=== PATIENT | female | born 1990 | race Caucasian/White ===

== ENCOUNTER 2018-01-05 17:29 | Emergency (ER) | payer OTHER ==
[2018-01-05 17:55] VITALS: PULSE 57; RESP 18
[2018-01-05] MEDS ORDERED: Sodium Chloride 0.9% 1,000 ML IV STA ×2 (18:02→21:00)
--- NOTE | 2018-01-05 18:09 | C.PDOC ---
History Of Present Illness 27-year-old female presents to the ED for evaluation of vomiting and abdominal pain which began this morning. Patient reports having around 20 episodes of non- bilious/non-bloody vomiting and states she has been unable to tolerate PO intake. Patient states she ate chicken at a local restaurant yesterday. Patient took Zofran earlier today without relief. She denies fever, chills, diarrhea. Time Seen by Provider: 01/05/18 17:41 Chief Complaint (Nursing): GI Problem History Per: Patient, Other (roommates (bedside)) Onset/Duration Of Symptoms: Hrs Current Symptoms Are (Timing): Still Present Quality Of Discomfort: "Pain" Associated Symptoms: Nausea, Vomiting. denies: Fever, Chills, Diarrhea, Constipation Additional History Per: Patient Abnormal Vaginal Bleeding: No Past Medical History Reviewed: Historical Data, Nursing Documentation, Vital Signs Vital Signs: Last Vital Signs Temp 98.4 F 01/05/18 21:51 Pulse 57 L 01/05/18 21:51 Resp 18 01/05/18 21:51 BP 120/74 01/05/18 21:51 Pulse Ox 100 01/05/18 21:51 - Medical History PMH: No Chronic Diseases Surgical History: No Surg Hx Family History: States: Unknown Family Hx - Social History Hx Tobacco Use: No Hx Alcohol Use: No Hx Substance Use: No - Immunization History Hx Tetanus Toxoid Vaccination: No Hx Influenza Vaccination: No Hx Pneumococcal Vaccination: No Review Of Systems Constitutional: Negative for: Fever, Chills Gastrointestinal: Positive for: Vomiting, Abdominal Pain Physical Exam - Physical Exam Additional Physical Exam Comments: Constitutional: Appears weak, actively vomiting Head: Normocephalic. Atraumatic. Eyes: PERRL. ENT: Moist mucous membranes. Neck: Supple. Cardiovascular: Regular rate. Radial pulse 2+ bilaterally. Chest: No tenderness. Respiratory: Clear to auscultation bilaterally. GI: Soft. Epigastric tenderness. No rebound or guarding. Back: No CVA tenderness. Musculoskeletal: No tenderness or swelling of extremities. Skin: No rash. Neurologic: Alert, no focal deficit. 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 Zofran IVP and IV Fluids administered. PO challenged. Patient offered admission for IVF but she preferred to go home. Continue PO fluids, instructed to return for intractible vomiting or lethargy. Disposition - Disposition Disposition: HOME/ ROUTINE Disposition Time: 22:14 Condition: STABLE Prescriptions: Ondansetron ODT [Zofran ODT] 1 tab PO Q8H #12 odt Instructions: Viral Gastroenteritis Forms: [employer] ([place]) - Clinical Impression Clinical Impression: Vomiting and diarrhea - Scribe Statement The provider has reviewed the documentation as recorded by the Scribe (Lisa Rojas) Provider Attestation: All medical record entries made by the Scribe were at my direction and personally dictated by me. I have reviewed the chart and agree that the record accurately reflects my personal performance of the history, physical exam, medical decision making, and the department course for this patient. I have also personally directed, reviewed, and agree with the discharge instructions and disposition.
[2018-01-05] MEDS ORDERED: Sodium Chloride 0.9% 1,000 ML ONE (18:10)
[2018-01-05 18:21] LABS: BASO % 0.5 % (0.0-2.0); EOS % 0.2 % (0.0-4.0); HEMOGLOBIN 13.4 g/dL (11.0-16.0); LYMPH # 1.1 K/uL (1.0-4.3); LYMPH % 14.9 % (20.0-40.0); MEAN CELL VOLUME 78.6 fL (81.0-99.0); MEAN CORPUSCULAR HEMOGLOBIN 25.5 pg (27.0-31.0); MEAN CORPUSCULAR HGB CONC 32.5 g/dL (33.0-37.0); MEAN PLATELET VOLUME 9.9 fL (7.2-11.7); MONO # 0.3 K/uL (0.0-0.8); MONO % 3.4 % (0.0-10.0); NEUT # 6.2 K/uL (1.8-7.0); NRBC % 0.1 % (0.0-2.0); RBC 5.25 Mil/uL (3.80-5.20); RED CELL DISTRIBUTION WIDTH 12.8 % (11.5-14.5); WHITE BLOOD COUNT 7.7 K/uL (4.8-10.8)
[2018-01-05 18:32] LABS: ALB/GLOB RATIO 1.3 (1.0-2.1); ALBUMIN 4.5 g/dL (3.5-5.0); ALT/SGPT 34 U/L (9-52); AST/SGOT 35 U/L (14-36); BLOOD UREA NITROGEN 17 mg/dL (7-17); CALCIUM 9.7 mg/dl (8.6-10.4); GFR AFRICAN-AMERICAN > 60; GFR NON-AFRICAN AMERICAN > 60; LIPASE 55 U/L (23-300)
[2018-01-05 19:31] LABS: HCG,QUALITATIVE URINE NEGATIVE (NEGATIVE)
[2018-01-05 19:32] LABS: SQUAMOUS EPITHIAL 2 /hpf (0-5); URINE BACTERIA RARE (<OCC); URINE BILIRUBIN NEGATIVE (NEGATIVE); URINE BLOOD NEGATIVE (NEGATIVE); URINE CLARITY Hazy (Clear); URINE COLOR Yellow (YELLOW); URINE GLUCOSE (UA) NORMAL (Normal); URINE LEUKOCYTE ESTERASE TRACE Leu/uL (Negative); URINE PROTEIN 2+ mg/dL (NEGATIVE); URINE UROBILINOGEN NORMAL mg/dL (0.2-1.0)
[2018-01-05 21:52] VITALS: BP 120/74; TEMP 98.4
[2018-01-05 22:15] VITALS: O2SAT 97
== END 2018-01-05 22:24 | disposition home or self-care (01) ==
LOC: C.ER 17:29
DX: R11.10 Vomiting, unspecified (principal); R19.7 Diarrhea, unspecified
CPT/HCPCS: 80053; 81001; 83690; 84703; 85025; 87086; 96361; 96374; 96375; 99285; J2405; J2765; J7030

== ENCOUNTER 2018-01-06 18:26 | Observation (INO) | payer OTHER ==
[2018-01-06] MEDS ORDERED: Sodium Chloride 0.9% 1,000 ML IV STA ×2 (18:55→21:53)
[2018-01-06] MEDS ORDERED: Sodium Chloride 0.9% 1,000 ML ONE ×2 (19:05→22:02)
[2018-01-06 19:10] LABS: BASO % 0.4 % (0.0-2.0); EOS % 0.1 % (0.0-4.0); HEMOGLOBIN 13.3 g/dL (11.0-16.0); LYMPH # 2.2 K/uL (1.0-4.3); LYMPH % 20.8 % (20.0-40.0); MEAN CORPUSCULAR HEMOGLOBIN 25.7 pg (27.0-31.0); MEAN PLATELET VOLUME 9.9 fL (7.2-11.7); MONO # 0.7 K/uL (0.0-0.8); MONO % 6.3 % (0.0-10.0); NEUT # 7.6 K/uL (1.8-7.0); NEUT % 72.4 % (50.0-75.0); NRBC % 0.1 % (0.0-2.0); RBC 5.17 Mil/uL (3.80-5.20); RED CELL DISTRIBUTION WIDTH 12.6 % (11.5-14.5); WHITE BLOOD COUNT 10.5 K/uL (4.8-10.8)
[2018-01-06 19:34] LABS: ALB/GLOB RATIO 1.4 (1.0-2.1); ALBUMIN 4.3 g/dL (3.5-5.0); ALT/SGPT 63 U/L (9-52); AST/SGOT 61 U/L (14-36); BLOOD UREA NITROGEN 15 mg/dL (7-17); CALCIUM 9.2 mg/dl (8.6-10.4); GFR AFRICAN-AMERICAN > 60; GFR NON-AFRICAN AMERICAN > 60; LIPASE 110 U/L (23-300)
[2018-01-06 19:37] LABS: SQUAMOUS EPITHIAL 1 /hpf (0-5); URINE AMORPHOUS SEDIMENT RARE /ul (<OCC); URINE BACTERIA RARE (<OCC); URINE BILIRUBIN NEGATIVE (NEGATIVE); URINE BLOOD NEGATIVE (NEGATIVE); URINE CLARITY Hazy (Clear); URINE COLOR Yellow (YELLOW); URINE GLUCOSE (UA) NORMAL (Normal); URINE LEUKOCYTE ESTERASE NEG Leu/uL (Negative); URINE PROTEIN 1+ mg/dL (NEGATIVE); URINE UROBILINOGEN NORMAL mg/dL (0.2-1.0)
[2018-01-06 19:38] LABS: HCG,QUALITATIVE URINE NEGATIVE (NEGATIVE)
--- NOTE | 2018-01-06 20:07 | C.PDOC ---
History Of Present Illness <Geoffrey Oconnor - Last Filed: 01/07/18 01:02> <Manjinder Ramirez - Last Filed: 01/07/18 03:11> 27-year-old female presents to the ED for evaluation of vomiting and abdominal pain which began yesterday. Patient reports having around 20 episodes of non- bilious/non-bloody vomiting and states she has been unable to tolerate PO intake. Patient states she ate chicken at a local restaurant 2 days ago. Patient was seen and treated here yesterday for same complaint, she was discharged on zofran, however, continues to have intractable vomiting despite zofran. She denies fever, chills, diarrhea. (Geoffrey Oconnor) History Per: Patient History/Exam Limitations: no limitations Onset/Duration Of Symptoms: Days Current Symptoms Are (Timing): Still Present Quality Of Discomfort: Unable To Describe Associated Symptoms: Nausea, Vomiting. denies: Fever, Diarrhea Exacerbating Factors: None Alleviating Factors: None Recent travel outside of the [place]: No Abnormal Vaginal Bleeding: No <Geoffrey Oconnor - Last Filed: 01/07/18 01:02> <Manjinder Ramirez - Last Filed: 01/07/18 03:11> Time Seen by Provider: 01/06/18 18:39 Chief Complaint (Nursing): GI Problem Past Medical History Reviewed: Historical Data, Nursing Documentation, Vital Signs Family History: States: Unknown Family Hx - Social History Hx Tobacco Use: No Hx Alcohol Use: No Hx Substance Use: No - Immunization History Hx Tetanus Toxoid Vaccination: No Hx Influenza Vaccination: No Hx Pneumococcal Vaccination: No <Geoffrey Oconnor - Last Filed: 01/07/18 01:02> Vital Signs: Last Vital Signs Temp 99.5 F 01/07/18 02:46 Pulse 55 L 01/07/18 02:46 Resp 18 01/07/18 02:46 BP 133/79 01/07/18 02:46 Pulse Ox 100 01/07/18 02:46 Review Of Systems Except As Marked, All Systems Reviewed And Found Negative. Constitutional: Negative for: Fever, Chills Gastrointestinal: Positive for: Nausea, Vomiting, Abdominal Pain. Negative for : Diarrhea <Geoffrey Oconnor - Last Filed: 01/07/18 01:02> Physical Exam <Geoffrey Oconnor - Last Filed: 01/07/18 01:02> <Manjinder Ramirez - Last Filed: 01/07/18 03:11> - Physical Exam Additional Physical Exam Comments: Constitutional: Appears weak, actively vomiting Head: Normocephalic. Atraumatic. Eyes: PERRL. ENT: Moist mucous membranes. Neck: Supple. Cardiovascular: Regular rate. Radial pulse 2+ bilaterally. Chest: No tenderness. Respiratory: Clear to auscultation bilaterally. GI: Soft. Epigastric tenderness. No rebound or guarding. Back: No CVA tenderness. Musculoskeletal: No tenderness or swelling of extremities. Skin: No rash. Neurologic: Alert, no focal deficit. (Geoffrey Oconnor) ED Course And Treatment - Laboratory Results Result Diagrams: 01/06/18 19:01 01/06/18 19:01 O2 Sat by Pulse Oximetry: 100 (Room air) Pulse Ox Interpretation: Normal <Geoffrey Oconnor - Last Filed: 01/07/18 01:02> - Laboratory Results Result Diagrams: 01/06/18 19:01 01/06/18 19:01 <Manjinder Ramirez - Last Filed: 01/07/18 03:11> Medical Decision Making <Geoffrey Oconnor - Last Filed: 01/07/18 01:02> <Manjinder Ramirez - Last Filed: 01/07/18 03:11> Medical Decision Making: Plan: * Blood work * CT abd/pel * Urinalysis * Protonix * IV fluids * Zofran CT shows gall bladder wall thickening, US ordered for further evaluation. Pending US. Signed out to ED night team. (Geoffrey Oconnor) Disposition - Disposition Disposition Time: 01:02 <Geoffrey Oconnor - Last Filed: 01/07/18 01:02> Discussed With : Grupo Smith Doctor Will See Patient In The: Hospital Counseled Patient/Family Regarding: Diagnosis - Disposition Disposition Time: 03:10 - POA Present On Arrival: None <Manjinder Ramirez Last Filed: 01/07/18 03:11> - Disposition Disposition: HOSPITALIZED Condition: STABLE Forms: [employer] (Norwegian) - Clinical Impression Clinical Impression: Intractable vomiting, Cholecystitis, unspecified - Scribe Statement The provider has reviewed the documentation as recorded by the Scribe <Geoffrey Oconnor - Last Filed: 01/07/18 01:02> <Manjinder Ramirez - Last Filed: 01/07/18 03:11> - Scribe Statement Brian Negron All medical record entries made by the Scribe were at my direction and personally dictated by me. I have reviewed the chart and agree that the record accurately reflects my personal performance of the history, physical exam, medical decision making, and the department course for this patient. I have also personally directed, reviewed, and agree with the discharge instructions and disposition. (Geoffrey Oconnor)
--- NOTE | 2018-01-06 21:15 | CT ---
EXAM: CT Abdomen and Pelvis With Intravenous Contrast CLINICAL HISTORY: 27 years old, female; Pain; Abdominal pain; Epigastric; Additional info: Abdominal pain, vomiting TECHNIQUE: Axial computed tomography images of the abdomen and pelvis with intravenous contrast. All CT scans at this facility use one or more dose reduction techniques, viz.: automated exposure control; ma/kV adjustment per patient size (including targeted exams where dose is matched to indication; i.e. head); or iterative reconstruction technique. Coronal and sagittal reformatted images were created and reviewed. CONTRAST: 100 mL of [id number] administered intravenously. COMPARISON: No relevant prior studies available. FINDINGS: Limitations: Motion artifact - mild. Lung bases: No acute findings. ABDOMEN: Liver: Fatty infiltration. Minimal periportal edema. Gallbladder and bile ducts: Gallbladder wall thickening. No calcified gallstones. No significant extrahepatic ductal dilation. Pancreas: No ductal dilation. No mass. Spleen: No splenomegaly. Adrenals: No mass. Kidneys and ureters: No mass. No hydronephrosis. Stomach and bowel: Segmental areas of probable underdistention of colon. No definite mural thickening. No obstruction. PELVIS: Appendix: Normal caliber. No inflammation. Bladder: Unremarkable. Reproductive: Unremarkable as visualized. ABDOMEN and PELVIS: Intraperitoneal space: Small free fluid within pelvis. No free air. Bones/joints: No acute fracture. Soft tissues: Tiny umbilical hernia containing fat. Vasculature: Unremarkable. No aneurysm. Lymph nodes: No pathologically enlarged lymph nodes. IMPRESSION: 1. Gallbladder wall thickening. Recommend ultrasound. 2. Incidental/non-acute findings are described above.
--- NOTE | 2018-01-07 02:33 | US ---
EXAM: US Abdomen Complete CLINICAL HISTORY: 27 years old, female; Pain; Abdominal pain; Patient HX: Vomitting; Additional info: Pls check pv flow, not a continuous flow TECHNIQUE: Real-time ultrasound of the abdomen (complete) with image documentation. COMPARISON: CT - ABD PELVIS IV CONTRAST ONLY 2018-01-06 20:40 FINDINGS: Liver: Normal echogenicity. No mass. No intrahepatic bile duct dilatation. Normal portal and hepatic flow. Gallbladder: No gallstones. Up to 0.61 cm wall thickness. Small pericholecystic fluid. Positive Patel's sign. Common bile duct: No dilatation. No stones. Pancreas: Unremarkable as visualized. Kidneys: Normal echogenicity. No hydronephrosis. Spleen: No splenomegaly. Aorta: Unremarkable. No aneurysm. Inferior vena cava: Unremarkable. Free fluid: No significant free fluid. IMPRESSION: 1. Gallbladder wall thickening with pericholecystic fluid and positive Patel's sign. Clinical correlation is needed.
--- NOTE | 2018-01-07 03:48 | CP.PCM.HP ---
<Bertha Mccarthy - Last Filed: 01/07/18 03:56> History of Present Illness - History of Present Illness History of Present Illness: CC: midepigastric pain and vomiting x multiple episodes 27F with no past medical history presents with nausea, vomiting. Patient was seen in ED yesterday 01/05 for same symptoms. Patient states she ate chicken at a restaurant the day before. Patient denies fever, chills, numbness, weakness, tingling, acid reflux. Patient admits to mid-epigastric pain, nausea, vomiting. Patient takes control at home and has been taking the same one for the past three months. PMH: none Past surgical: none Social: smoker 2-3 cig per day for the past year. no illicit drugs. social etoh once a month allergies: NKDA Present on Admission - Present on Admission Any Indicators Present on Admission: No History of DVT/PE: No History of Uncontrolled Diabetes: No Urinary Catheter: No Decubitus Ulcer Present: No Review of Systems - Review of Systems All systems: reviewed and no additional remarkable complaints except Past Patient History - Past Medical History & Family History Past Medical History?: No - Past Social History Smoking Status: Light Smoker < 10 Cigarettes Daily Chewing Tobacco Use: No Cigar Use: No Alcohol: Social Drugs: Denies - ENDOCRINE/METABOLIC Other/Comment: PRE DIABETIC - PSYCHIATRIC Hx Substance Use: No - SURGICAL HISTORY Hx Surgeries: No Meds Allergies/Adverse Reactions: Allergies Allergy/AdvReac Type Severity Reaction Status Date / Time No Known Allergies Allergy Unverified 01/05/18 17:42 Physical Exam - Constitutional Appears: Non-toxic, No Acute Distress - Head Exam Head Exam: ATRAUMATIC, NORMAL INSPECTION, NORMOCEPHALIC - Eye Exam Eye Exam: EOMI, Normal appearance - ENT Exam ENT Exam: Mucous Membranes Dry - Neck Exam Neck exam: Positive for: Full Rom. Negative for: Tenderness, Thyromegaly - Respiratory Exam Respiratory Exam: NORMAL BREATHING PATTERN. absent: Accessory Muscle Use - Cardiovascular Exam Cardiovascular Exam: REGULAR RHYTHM, +S1, +S2 - GI/Abdominal Exam GI & Abdominal Exam: Soft, Tenderness (midepigastric pain to deep palpation, ruq pain to deep palpation. positive langston's sign). absent: Distended, Firm, Pulsatile Mass, Rebound, Rigid - Extremities Exam Extremities exam: Positive for: full ROM. Negative for: pedal edema - Neurological Exam Neurological exam: Alert, CN II-XII Intact, Reflexes Normal - Psychiatric Exam Psychiatric exam: Flat Affect, Normal Mood - Skin Skin Exam: Dry, Intact, Normal Color, Warm Results - Vital Signs Recent Vital Signs: Last Vital Signs Temp 99.5 F 01/07/18 02:46 Pulse 55 L 01/07/18 02:46 Resp 18 01/07/18 02:46 BP 133/79 01/07/18 02:46 Pulse Ox 100 01/07/18 02:46 - Labs Result Diagrams: 01/06/18 19:01 01/06/18 19:01 Labs: Laboratory Results - last 24 hr 01/06/18 01/06/18 01/06/18 19:01 19:01 19:27 WBC 10.5 RBC 5.17 Hgb 13.3 Hct 40.3 MCV 78.0 L MCH 25.7 L MCHC 33.0 RDW 12.6 Plt Count 222 MPV 9.9 Neut % (Auto) 72.4 Lymph % (Auto) 20.8 [place] % (Auto) 6.3 Eos % (Auto) 0.1 Baso % (Auto) 0.4 Neut # (Auto) 7.6 H Lymph # (Auto) 2.2 [place] # (Auto) 0.7 Eos # (Auto) 0.0 Baso # (Auto) 0.0 Sodium 144 Potassium 3.5 L Chloride 108 H Carbon Dioxide 22 Anion Gap 18 BUN 15 Creatinine 0.8 Est GFR ( Amer) > 60 Est GFR (Non-Af Amer) > 60 Random Glucose 98 Calcium 9.2 Total Bilirubin 0.6 AST 61 H D ALT 63 H D Alkaline Phosphatase 50 Total Protein 7.3 Albumin 4.3 Globulin 3.0 Albumin/Globulin Ratio 1.4 Lipase 110 Urine Color Yellow Urine Clarity Hazy Urine pH 7.0 Ur Specific [place] 1.027 Urine Protein 1+ H Urine Glucose (UA) Normal Urine Ketones 2+ H Urine Blood Negative Urine Nitrate Negative Urine Bilirubin Negative Urine Urobilinogen Normal Ur Leukocyte Esterase Neg Urine WBC (Auto) 3 Urine RBC (Auto) 3 Ur Squamous Epith Cells 1 Amorphous Sediment Rare H Urine Bacteria Rare Urine HCG, Qual Negative Assessment & Plan - Assessment and Plan (Free Text) Assessment: transaminitis, acalculous cholecystitis, intractable vomiting, afebrile 01/06 CT abdomen/pelvis IV contrast: Gallbladder wall thickening 01/07 Abdominal US: gallbladder wall thickening with pericholecystic fluid and positive langston's sign. monitor electrolytes Reglan 10 mg IVP Q6H PRN nausea Zofran 4mg IVP Q6H PRN nausea Toradol 15 mg IVP Q6H PRN pain Toradol 30mg IVP Q6H PRN pain LR @ 100cc/hr electrolyte abnormality, repleted monitor CMP, Mg, Ph prophylaxis scd, heparin 5000 sc q8h protonix 40mg IVP diet: NPO Berthaaugusta Mccarthy, DO PGY1 - Date & Time Date: 01/07/18 Time: 04:01 <Grupo Smith - Last Filed: 01/07/18 06:36> Results - Vital Signs Recent Vital Signs: Last Vital Signs Temp 98.2 F 01/07/18 06:28 Pulse 68 01/07/18 06:28 Resp 16 01/07/18 06:28 BP 103/65 01/07/18 06:28 Pulse Ox 100 01/07/18 06:28 - Labs Result Diagrams: 01/07/18 05:24 01/07/18 05:24 Labs: Laboratory Results - last 24 hr 01/06/18 01/06/18 01/06/18 19:01 19:01 19:27 WBC 10.5 RBC 5.17 Hgb 13.3 Hct 40.3 MCV 78.0 L MCH 25.7 L MCHC 33.0 RDW 12.6 Plt Count 222 MPV 9.9 Neut % (Auto) 72.4 Lymph % (Auto) 20.8 [place] % (Auto) 6.3 Eos % (Auto) 0.1 Baso % (Auto) 0.4 Neut # (Auto) 7.6 H Lymph # (Auto) 2.2 [place] # (Auto) 0.7 Eos # (Auto) 0.0 Baso # (Auto) 0.0 Sodium 144 Potassium 3.5 L Chloride 108 H Carbon Dioxide 22 Anion Gap 18 BUN 15 Creatinine 0.8 Est GFR ( Amer) > 60 Est GFR (Non-Af Amer) > 60 Random Glucose 98 Calcium 9.2 Phosphorus Magnesium Total Bilirubin 0.6 AST 61 H D ALT 63 H D Alkaline Phosphatase 50 Total Protein 7.3 Albumin 4.3 Globulin 3.0 Albumin/Globulin Ratio 1.4 Lipase 110 Urine Color Yellow Urine Clarity Hazy Urine pH 7.0 Ur Specific [place] 1.027 Urine Protein 1+ H Urine Glucose (UA) Normal Urine Ketones 2+ H Urine Blood Negative Urine Nitrate Negative Urine Bilirubin Negative Urine Urobilinogen Normal Ur Leukocyte Esterase Neg Urine WBC (Auto) 3 Urine RBC (Auto) 3 Ur Squamous Epith Cells 1 Amorphous Sediment Rare H Urine Bacteria Rare Urine HCG, Qual Negative 01/07/18 01/07/18 05:24 05:24 WBC 9.2 RBC 4.86 Hgb 12.4 Hct 38.3 MCV 78.8 L MCH 25.6 L MCHC 32.5 L RDW 12.8 Plt Count 182 MPV 10.2 Neut % (Auto) 64.9 Lymph % (Auto) 27.1 [place] % (Auto) 7.3 Eos % (Auto) 0.1 Baso % (Auto) 0.6 Neut # (Auto) 5.9 Lymph # (Auto) 2.5 [place] # (Auto) 0.7 Eos # (Auto) 0.0 Baso # (Auto) 0.1 Sodium 143 Potassium 3.8 Chloride 111 H Carbon Dioxide 20 L Anion Gap 16 BUN 15 Creatinine 0.7 Est GFR ( Amer) > 60 Est GFR (Non-Af Amer) > 60 Random Glucose 97 Calcium 8.2 L Phosphorus 2.3 L Magnesium 2.0 Total Bilirubin 0.7 AST 107 H D ALT 136 H D Alkaline Phosphatase 42 Total Protein 6.2 L Albumin 3.8 Globulin 2.4 Albumin/Globulin Ratio 1.6 Lipase Urine Color Urine Clarity Urine pH Ur Specific [place] Urine Protein Urine Glucose (UA) Urine Ketones Urine Blood Urine Nitrate Urine Bilirubin Urine Urobilinogen Ur Leukocyte Esterase Urine WBC (Auto) Urine RBC (Auto) Ur Squamous Epith Cells Amorphous Sediment Urine Bacteria Urine HCG, Qual Assessment & Plan - Date & Time Date: 01/07/18 (I have seen and examined the patient. I agree with the findings and plan of care as documented by Dr. Mccarthy. Patient with intractable vomiting secondary to gallbladder disease. Zofran and symptomatic treatment. IVF. Consult to surgery. Monitor for acute changes.) Time: 06:34 Attending/Attestation - Attestation I have personally seen and examined this patient.: Yes I have fully participated in the care of the patient.: Yes I have reviewed all pertinent clinical information: Yes
[2018-01-07] MEDS ORDERED: Potassium Chloride 20 mEq 100 ML ONE (04:27)
[2018-01-07] MEDS ORDERED: Lactated Ringer's 1,000 ML ONE (04:27)
[2018-01-07] MEDS: Lactated Ringer's 1,000 ML IV SCH ×3 (04:28→23:45)
[2018-01-07 05:28] LABS: BASO # 0.1 K/uL (0.0-0.2); BASO % 0.6 % (0.0-2.0); EOS % 0.1 % (0.0-4.0); HEMOGLOBIN 12.4 g/dL (11.0-16.0); LYMPH # 2.5 K/uL (1.0-4.3); LYMPH % 27.1 % (20.0-40.0); MEAN CELL VOLUME 78.8 fL (81.0-99.0); MEAN CORPUSCULAR HEMOGLOBIN 25.6 pg (27.0-31.0); MEAN CORPUSCULAR HGB CONC 32.5 g/dL (33.0-37.0); MEAN PLATELET VOLUME 10.2 fL (7.2-11.7); MONO # 0.7 K/uL (0.0-0.8); MONO % 7.3 % (0.0-10.0); NEUT # 5.9 K/uL (1.8-7.0); NEUT % 64.9 % (50.0-75.0); NRBC % 0.1 % (0.0-2.0); RBC 4.86 Mil/uL (3.80-5.20); RED CELL DISTRIBUTION WIDTH 12.8 % (11.5-14.5); WHITE BLOOD COUNT 9.2 K/uL (4.8-10.8)
[2018-01-07 06:22] LABS: ALB/GLOB RATIO 1.6 (1.0-2.1); ALBUMIN 3.8 g/dL (3.5-5.0); ALT/SGPT 136 U/L (9-52); AST/SGOT 107 U/L (14-36); BLOOD UREA NITROGEN 15 mg/dL (7-17); CALCIUM 8.2 mg/dl (8.6-10.4); GFR AFRICAN-AMERICAN > 60; GFR NON-AFRICAN AMERICAN > 60
--- NOTE | 2018-01-07 09:12 | CP.PCM.CON ---
History of Present Illness - History of Present Illness History of Present Illness: Surgery 27 F w no sig PMG came with epigatric pain,nausea and vomiting. symptoms started on sunday after she ate chicken on Sunday. Pain started on epigastric area and now also around RUQ area. Pt had multiple episodes of emesis. Pt couldn 't hold any liquids or food. Denies fever, diarrhea, CP, SOB, dysuria, hematuria , hematochezia . Pt went out with her friends on sunday and had food. Denies sick contact. Pt is from [facility] 2 years ago. Pt is a smoker and drinks occasionally. Her grandmother had GB removed. PMH : pre-diabetic PSH : None SS: smoker daily , drinks occasionally FHx: grandmother had GB removed. Review of Systems - Review of Systems Review of Systems: See HPI Past Patient History - Past Medical History & Family History Past Medical History?: No - Past Social History Smoking Status: Light Smoker < 10 Cigarettes Daily Chewing Tobacco Use: No Cigar Use: No Alcohol: Social Drugs: Denies - ENDOCRINE/METABOLIC Other/Comment: PRE DIABETIC - PSYCHIATRIC Hx Substance Use: No - SURGICAL HISTORY Hx Surgeries: No Meds Allergies/Adverse Reactions: Allergies Allergy/AdvReac Type Severity Reaction Status Date / Time No Known Allergies Allergy Unverified 01/05/18 17:42 - Medications Medications: Current Medications Lactated Ringer's (Lactated Ringer's) 1,000 mls @ 100 mls/hr IV .Q10H [facility] Last Admin: 01/07/18 04:28 Dose: 100 mls/hr Potassium Chloride (Potassium Chloride 20 Meq/100 Ml) 20 meq in 100 mls @ 25 mls/hr IVPB Q4H [facility] Stop: 01/07/18 11:44 Last Admin: 01/07/18 04:28 Dose: 25 mls/hr Ketorolac Tromethamine (Toradol) 15 mg IVP Q6 PRN PRN Reason: Pain, moderate (4-7) Ketorolac Tromethamine (Toradol) 30 mg IVP Q6H PRN PRN Reason: Pain, severe (8-10) Last Admin: 01/07/18 04:30 Dose: 30 mg Metoclopramide HCl (Reglan) 10 mg IVP Q6H PRN PRN Reason: Nausea/Vomiting Ondansetron HCl (Zofran Inj) 4 mg IVP Q6H PRN PRN Reason: Nausea/Vomiting Physical Exam - Constitutional Appears: Non-toxic, No Acute Distress - Head Exam Head Exam: ATRAUMATIC, NORMAL INSPECTION, NORMOCEPHALIC - Eye Exam Eye Exam: EOMI, Normal appearance, PERRL Pupil Exam: NORMAL ACCOMODATION, PERRL - ENT Exam ENT Exam: Mucous Membranes Moist, Normal Exam - Neck Exam Neck exam: Positive for: Normal Inspection - Respiratory Exam Respiratory Exam: Clear to Auscultation Bilateral, NORMAL BREATHING PATTERN - Cardiovascular Exam Cardiovascular Exam: REGULAR RHYTHM - GI/Abdominal Exam GI & Abdominal Exam: Guarding, Normal Bowel Sounds, Soft, Tenderness. absent: Distended, Firm, Hernia Additional comments: RUQ epigatric TTP - Exam Exam: NORMAL INSPECTION - Extremities Exam Extremities exam: Positive for: normal inspection - Back Exam Back exam: NORMAL INSPECTION - Neurological Exam Neurological exam: Alert, CN II-XII Intact, Normal Gait, Oriented x3, Reflexes Normal - Psychiatric Exam Psychiatric exam: Normal Affect, Normal Mood - Skin Skin Exam: Dry, Intact, Normal Color, Warm Results - Vital Signs Recent Vital Signs: Last Vital Signs Temp 98.1 F 01/07/18 08:08 Pulse 60 01/07/18 08:08 Resp 20 01/07/18 08:08 BP 131/77 01/07/18 08:08 Pulse Ox 95 01/07/18 08:08 - Labs Result Diagrams: 01/07/18 05:24 01/07/18 05:24 Labs: Laboratory Results - last 24 hr 01/06/18 01/06/18 01/06/18 19:01 19:01 19:27 WBC 10.5 RBC 5.17 Hgb 13.3 Hct 40.3 MCV 78.0 L MCH 25.7 L MCHC 33.0 RDW 12.6 Plt Count 222 MPV 9.9 Neut % (Auto) 72.4 Lymph % (Auto) 20.8 [place] % (Auto) 6.3 Eos % (Auto) 0.1 Baso % (Auto) 0.4 Neut # (Auto) 7.6 H Lymph # (Auto) 2.2 [place] # (Auto) 0.7 Eos # (Auto) 0.0 Baso # (Auto) 0.0 Sodium 144 Potassium 3.5 L Chloride 108 H Carbon Dioxide 22 Anion Gap 18 BUN 15 Creatinine 0.8 Est GFR ( Amer) > 60 Est GFR (Non-Af Amer) > 60 Random Glucose 98 Calcium 9.2 Phosphorus Magnesium Total Bilirubin 0.6 AST 61 H D ALT 63 H D Alkaline Phosphatase 50 Total Protein 7.3 Albumin 4.3 Globulin 3.0 Albumin/Globulin Ratio 1.4 Lipase 110 Urine Color Yellow Urine Clarity Hazy Urine pH 7.0 Ur Specific [place] 1.027 Urine Protein 1+ H Urine Glucose (UA) Normal Urine Ketones 2+ H Urine Blood Negative Urine Nitrate Negative Urine Bilirubin Negative Urine Urobilinogen Normal Ur Leukocyte Esterase Neg Urine WBC (Auto) 3 Urine RBC (Auto) 3 Ur Squamous Epith Cells 1 Amorphous Sediment Rare H Urine Bacteria Rare Urine HCG, Qual Negative 01/07/18 01/07/18 05:24 05:24 WBC 9.2 RBC 4.86 Hgb 12.4 Hct 38.3 MCV 78.8 L MCH 25.6 L MCHC 32.5 L RDW 12.8 Plt Count 182 MPV 10.2 Neut % (Auto) 64.9 Lymph % (Auto) 27.1 [place] % (Auto) 7.3 Eos % (Auto) 0.1 Baso % (Auto) 0.6 Neut # (Auto) 5.9 Lymph # (Auto) 2.5 [place] # (Auto) 0.7 Eos # (Auto) 0.0 Baso # (Auto) 0.1 Sodium 143 Potassium 3.8 Chloride 111 H Carbon Dioxide 20 L Anion Gap 16 BUN 15 Creatinine 0.7 Est GFR ( Amer) > 60 Est GFR (Non-Af Amer) > 60 Random Glucose 97 Calcium 8.2 L Phosphorus 2.3 L Magnesium 2.0 Total Bilirubin 0.7 AST 107 H D ALT 136 H D Alkaline Phosphatase 42 Total Protein 6.2 L Albumin 3.8 Globulin 2.4 Albumin/Globulin Ratio 1.6 Lipase Urine Color Urine Clarity Urine pH Ur Specific [place] Urine Protein Urine Glucose (UA) Urine Ketones Urine Blood Urine Nitrate Urine Bilirubin Urine Urobilinogen Ur Leukocyte Esterase Urine WBC (Auto) Urine RBC (Auto) Ur Squamous Epith Cells Amorphous Sediment Urine Bacteria Urine HCG, Qual Assessment & Plan - Assessment and Plan (Free Text) Assessment: RUQ pain and vomiting US: no GB stone, GB wall thickening upto 6mm, pericholecystic fluids, langston sign -HIDA -NPO -IVF -ABX Will JACKIE Rose
[2018-01-07 11:59] LABS: INR 1.1; PROTHROMBIN TIME 12.2 SECONDS (9.7-12.2)
--- NOTE | 2018-01-07 13:16 | RAD ---
Chest x-ray single frontal view History: Preoperative evaluation. Comparison: None available. Findings No focal infiltrate or effusion. Heart size within normal limits. Impression: No focal infiltrate or effusion.
--- NOTE | 2018-01-07 13:18 | CP.PCM.PN ---
<Filemon Berg - Last Filed: 01/07/18 13:06> Subjective - Date & Time of Evaluation Date of Evaluation: 01/07/18 Time of Evaluation: 10:00 - Subjective Subjective: PGY1 Medicine Note for Dr. Kwok Patient seen and examined at bedside this morning. No acute events overnight. Patient was seen by surgery this morning and informed that it is recommended by them to have her gallbladder removed. Patient is nervous about the thought of surgery and has not agreed to sign the consent form yet. She is still experiencing abdominal pain but her pain has been well controlled. She is currently not nauseous and has not vomited since yesterday. She is waiting for a call back from her parents before she decides to agree to have surgery. Objective - Vital Signs/Intake and Output Vital Signs (last 24 hours): Temp Pulse Resp BP Pulse Ox 98.1 F 60 20 131/77 95 01/07/18 08:08 01/07/18 08:08 01/07/18 08:08 01/07/18 08:08 01/07/18 08:08 - Medications Medications: Current Medications Lactated Ringer's (Lactated Ringer's) 1,000 mls @ 100 mls/hr IV .Q10H [facility] Last Admin: 01/07/18 04:28 Dose: 100 mls/hr Ceftriaxone Sodium 1 gm/ (Sodium Chloride) 100 mls @ 100 mls/hr IVPB Q12H [facility] PRN Reason: Protocol Last Admin: 01/07/18 10:55 Dose: 100 mls/hr Ketorolac Tromethamine (Toradol) 15 mg IVP Q6 PRN PRN Reason: Pain, moderate (4-7) Ketorolac Tromethamine (Toradol) 30 mg IVP Q6H PRN PRN Reason: Pain, severe (8-10) Last Admin: 01/07/18 04:30 Dose: 30 mg Metoclopramide HCl (Reglan) 10 mg IVP Q6H PRN PRN Reason: Nausea/Vomiting Ondansetron HCl (Zofran Inj) 4 mg IVP Q6H PRN PRN Reason: Nausea/Vomiting Pneumococcal Polyvalent Vaccine (Pneumovax 23 Vaccine) 0.5 ml IM .ONCE ONE Stop: 01/10/18 10:01 - Labs Labs: 01/07/18 05:24 01/07/18 05:24 PT 12.2 SECONDS (9.7-12.2) 01/07/18 11:33 INR 1.1 01/07/18 11:33 APTT 28 SECONDS (21-34) 01/07/18 11:33 - Constitutional Appears: Non-toxic, Other (appears uncomfortable) - Eye Exam Eye Exam: Normal appearance - ENT Exam ENT Exam: Mucous Membranes Moist - Respiratory Exam Respiratory Exam: Clear to Ausculation Bilateral, NORMAL BREATHING PATTERN. absent: Accessory Muscle Use, Rales, Rhonchi, Wheezes, Respiratory Distress - Cardiovascular Exam Cardiovascular Exam: REGULAR RHYTHM, +S1, +S2 - GI/Abdominal Exam GI & Abdominal Exam: Guarding (RUQ), Soft, Tenderness (RUQ), Normal Bowel Sounds. absent: Distended, Firm, Rigid - Extremities Exam Extremities Exam: absent: Calf Tenderness, Pedal Edema - Neurological Exam Neurological Exam: Alert, Awake, Oriented x3 - Psychiatric Exam Psychiatric exam: Normal Affect, Normal Mood - Skin Skin Exam: Dry, Warm Assessment and Plan - Assessment and Plan (Free Text) Assessment: Patient is a 27 year old female with an unremarkable past medical history presenting with RUQ. Abdominal US shows acalculous cholecystitis. Patient scheduled for possible lap oseas later today. Plan: Acalculous Cholecystitis, Transaminitis General Surgery consulted, Dr. Rose - help appreciated * Hida Scan - pending * NPO * IV fluids * Abx CT abd/pelvis 01/06: Gallbladder wall thickening. Recommend ultrasound. Abd US 01/07: Gallbladder wall thickening with pericholecystic fluid and positive Patel's sign. CXR 01/07: No focal infiltrate or effusion. AST 107 uptrending (61 on 01/06 and 35 on 01/05) ALT 136 uptrending (63 on 01/06 and 34 on 01/05) T.bili 0.7 Rocephin 1gm IVPB q12h (started on 01/07) Reglan 10mg IVP q6h prn Zofran 4mg IVP q6h prn Toradol 30mg IVP q6h prn LR @100mL/hr Hypokalemia repleted continue to monitor Prophylactic Care SCDs only No anticoag at this time due to potential surgical procedure. DISPO: Patient may have lap oseas later this afternoon but currently does not want to consent for procedure until she speaks with her family in [place]. 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 She is here to study and attempt residency in the [facility] [facility]. She understands her condition very well and has no questions at this time. Case discussed with Dr. Sundar Colbert Otis PGY1 <Tomeka Kwok V - Last Filed: 01/07/18 16:44> Objective - Vital Signs/Intake and Output Vital Signs (last 24 hours): Temp Pulse Resp BP Pulse Ox 98.1 F 60 20 131/77 95 01/07/18 08:08 01/07/18 08:08 01/07/18 08:08 01/07/18 08:08 01/07/18 08:08 Intake and Output: 01/07/18 01/07/18 06:59 18:59 Intake Total 600 Balance 600 - Medications Medications: Current Medications Lactated Ringer's (Lactated Ringer's) 1,000 mls @ 100 mls/hr IV .Q10H [facility] Last Admin: 01/07/18 14:45 Dose: Not Given Ceftriaxone Sodium 1 gm/ (Sodium Chloride) 100 mls @ 100 mls/hr IVPB Q12H [facility] PRN Reason: Protocol Last Admin: 01/07/18 10:55 Dose: 100 mls/hr Ketorolac Tromethamine (Toradol) 15 mg IVP Q6 PRN PRN Reason: Pain, moderate (4-7) Ketorolac Tromethamine (Toradol) 30 mg IVP Q6H PRN PRN Reason: Pain, severe (8-10) Last Admin: 01/07/18 04:30 Dose: 30 mg Metoclopramide HCl (Reglan) 10 mg IVP Q6H PRN PRN Reason: Nausea/Vomiting Ondansetron HCl (Zofran Inj) 4 mg IVP Q6H PRN PRN Reason: Nausea/Vomiting Pneumococcal Polyvalent Vaccine (Pneumovax 23 Vaccine) 0.5 ml IM .ONCE ONE Stop: 01/10/18 10:01 - Labs Labs: 01/07/18 05:24 01/07/18 05:24 PT 12.2 SECONDS (9.7-12.2) 01/07/18 11:33 INR 1.1 01/07/18 11:33 APTT 28 SECONDS (21-34) 01/07/18 11:33 Attending/Attestation - Attestation I have personally seen and examined this patient.: Yes I have fully participated in the care of the patient.: Yes I have reviewed all pertinent clinical information, including history, physical exam and plan: Yes Notes (Text): Patient seen, examined and case discussed with day-time resident. Patient seen this morning, had recent ER vist on Sunday noted for intractable nausea and vomitting, which became worse and more frequent, which prompted her to come to the hospital. Surgery is consulted on the case, possible lap oseas, pending the HIDA scan which was ordered. Patient over the past three visits noted to have increasing liver function tests. Bilirubin is normal. Patient does not appear jaundice. Patient reports she has not had a bowel movement for the past three days. Surgery has updated their note given the result of the HIDA which is negative. Will consult GI for further workup in light of RUQ pain and transaminits. Assessment/Plan 1) Acalculous Cholecystitis Transaminitis Assessment/Plan * General Surgery consulted, Dr. Rose - help appreciated * No surgery intervention in light of negative HIDA per updated surgery note * GI photovoltaic installation technician (Dr. Vidal)-->help appreciated reason: transaminitis and right upper quadrant pain * CT abd/pelvis 01/06: Gallbladder wall thickening. Recommend ultrasound. * Abd US 01/07: Gallbladder wall thickening with pericholecystic fluid and positive Patel's sign. No gallstones noted, 0.61 cm wall thickness. * HIDA (6.11.18): no nuclear evidence of cystic or common duct obstruction * CXR 01/07: No focal infiltrate or effusion. * AST 107 uptrending (61 on 01/06 and 35 on 01/05) * ALT 136 uptrending (63 on 01/06 and 34 on 01/05) * Rocephin 1gm IVPB q12h (started on 01/07) * Reglan 10mg IVP q6h prn * Zofran 4mg IVP q6h prn * LR @100mL/hr * Will order for hepatitis panel, ANABELLA, antimitochondrial reflex 2) Hypokalemia Assessment/Plan * repleted * continue to monitor 3) Tobacco Use * Patient is a light smoker on OCPs, she was counselled to stop smoking, she is aware of the risks associated including cancer and clot formation 4) Prophylactic Care * SCDs only * No anticoag at this time due to potential surgical procedure.
--- NOTE | 2018-01-07 16:04 | NM ---
PROCEDURE: Nuclear Medicine Hepatobiliary Scan HISTORY: cholecystitis COMPARISON: None available. TECHNIQUE: mCi of technetium 99m Mebrofenin was administered intravenously. Planar images of the abdomen were obtained at 5 min intervals to 60 mins. Delayed images were also obtained. FINDINGS: LIVER: Timely and homogenous uptake. COMMON BILE DUCT: identified at 25 mins. GALLBLADDER: identified at 15 mins. SMALL BOWEL: Identified at 30 mins. IMPRESSION: No nuclear evidence of cystic or common duct obstruction.
[2018-01-07 21:15] LABS: HEPATITIS B SURFACE AG Negative (NEGATIVE)
[2018-01-07 21:21] LABS: HEPATITIS A IGM NEGATIVE (NEGATIVE); HEPATITIS B CORE AB NEGATIVE (NEGATIVE)
[2018-01-07 21:32] LABS: HEPATITIS C ANTIBODY NEGATIVE (NEGATIVE)
[2018-01-08] MEDS: Lactated Ringer's 1,000 ML IV SCH ×4 (02:30→21:30)
[2018-01-08 06:58] LABS: BASO # 0.1 K/uL (0.0-0.2); BASO % 0.6 % (0.0-2.0); EOS % 0.3 % (0.0-4.0); HEMOGLOBIN 12.2 g/dL (11.0-16.0); LYMPH # 2.5 K/uL (1.0-4.3); MEAN CELL VOLUME 78.9 fL (81.0-99.0); MEAN CORPUSCULAR HEMOGLOBIN 26.2 pg (27.0-31.0); MEAN CORPUSCULAR HGB CONC 33.2 g/dL (33.0-37.0); MEAN PLATELET VOLUME 10.3 fL (7.2-11.7); MONO # 0.7 K/uL (0.0-0.8); MONO % 7.8 % (0.0-10.0); NEUT # 5.3 K/uL (1.8-7.0); NEUT % 62.3 % (50.0-75.0); RBC 4.65 Mil/uL (3.80-5.20); RED CELL DISTRIBUTION WIDTH 12.7 % (11.5-14.5); WHITE BLOOD COUNT 8.5 K/uL (4.8-10.8)
[2018-01-08 07:56] LABS: ALT/SGPT 297 U/L (9-52)
[2018-01-08 07:57] LABS: ALB/GLOB RATIO 1.6 (1.0-2.1); ALBUMIN 3.9 g/dL (3.5-5.0); AST/SGOT 197 U/L (14-36); BLOOD UREA NITROGEN 13 mg/dL (7-17); CALCIUM 8.6 mg/dl (8.6-10.4); GFR AFRICAN-AMERICAN > 60; GFR NON-AFRICAN AMERICAN > 60
--- NOTE | 2018-01-08 09:53 | CP.PCM.CON ---
<Barry Kaur - Last Filed: 01/08/18 09:46> History of Present Illness - History of Present Illness History of Present Illness: GI Consult Note - Chris Peñaleonela PGY2 Patient is a 27yo female with no significant past medical history that presents c/o intractable nausea and non-bilious, non-bloody vomiting that started 3 days prior. She reported that she had a questionable chicken meal on Sunday and the following day began to experience nausea/vomiting with sharp, epigastric and RUQ abdominal pain. No apparent alleviating/exacerbating symptoms. She reported that prior to this episode she was in her usual state of health with no acute issues. A CT abd/pelvis was done in the ED which was notable for gallbladder wall thickening. Abdominal US revealed GB wall thickening with small pericholecystic fluid. HIDA scan was negative. She denies chest pain, SOB, fevers, cough, hematemesis, hemoptysis, melena, hematochezia, focal weakness, numbness, tingling, dysuria, frequency, urgency. 12point ROS as per above otherwise negative PMH: as stated above PSH: denies Allergies: NKDA Family Hx: No reported GI malignancy in the family Social Hx: smokes 2-3 cig/day for past 1yr, social ETOH use approx 1/month, denies illicit drug use Endoscopic Hx: Denies prior EGD/Colonoscopy Past Patient History - Past Medical History & Family History Past Medical History?: No - Past Social History Smoking Status: Light Smoker < 10 Cigarettes Daily Chewing Tobacco Use: No Cigar Use: No Alcohol: Social Drugs: Denies - ENDOCRINE/METABOLIC Other/Comment: PRE DIABETIC - PSYCHIATRIC Hx Substance Use: No - SURGICAL HISTORY Hx Surgeries: No Meds Allergies/Adverse Reactions: Allergies Allergy/AdvReac Type Severity Reaction Status Date / Time No Known Allergies Allergy Unverified 01/05/18 17:42 - Medications Medications: Current Medications Lactated Ringer's (Lactated Ringer's) 1,000 mls @ 100 mls/hr IV .Q10H [facility] Last Admin: 01/08/18 08:47 Dose: Not Given Ceftriaxone Sodium 1 gm/ (Sodium Chloride) 100 mls @ 100 mls/hr IVPB Q12H [facility] PRN Reason: Protocol Last Admin: 01/08/18 09:15 Dose: 100 mls/hr Metoclopramide HCl (Reglan) 10 mg IVP Q6H PRN PRN Reason: Nausea/Vomiting Ondansetron HCl (Zofran Inj) 4 mg IVP Q6H [facility] Last Admin: 01/08/18 09:15 Dose: Not Given Pantoprazole Sodium (Protonix Inj) 40 mg IVP DAILY [facility] Last Admin: 01/08/18 09:16 Dose: 40 mg Pneumococcal Polyvalent Vaccine (Pneumovax 23 Vaccine) 0.5 ml IM .ONCE ONE Stop: 01/10/18 10:01 Physical Exam - Constitutional Appears: No Acute Distress - Head Exam Head Exam: ATRAUMATIC, NORMOCEPHALIC - Eye Exam Eye Exam: EOMI Pupil Exam: PERRL - ENT Exam ENT Exam: Mucous Membranes Moist - Neck Exam Neck exam: Positive for: Normal Inspection - Respiratory Exam Respiratory Exam: Clear to Auscultation Bilateral. absent: Rales, Rhonchi, Wheezes - Cardiovascular Exam Cardiovascular Exam: +S1, +S2. absent: Gallop, JVD, Rubs - GI/Abdominal Exam GI & Abdominal Exam: Guarding, Soft, Tenderness (tender to palpation in epigastric and RUQ region). absent: Distended, Firm - Extremities Exam Extremities exam: Positive for: normal inspection. Negative for: pedal edema - Neurological Exam Neurological exam: Alert, CN II-XII Intact, Oriented x3 - Psychiatric Exam Psychiatric exam: Normal Affect, Normal Mood - Skin Skin Exam: Dry, Intact, Normal Color, Warm Results - Vital Signs Recent Vital Signs: Last Vital Signs Temp 98.1 F 01/08/18 07:57 Pulse 49 L 01/08/18 07:57 Resp 20 01/08/18 07:57 BP 107/68 01/08/18 07:57 Pulse Ox 99 01/08/18 07:57 - Labs Result Diagrams: 01/08/18 06:53 01/08/18 06:53 Labs: Laboratory Results - last 24 hr 01/07/18 01/07/18 01/07/18 11:33 11:33 20:18 WBC RBC Hgb Hct MCV MCH MCHC RDW Plt Count MPV Neut % (Auto) Lymph % (Auto) [place] % (Auto) Eos % (Auto) Baso % (Auto) Neut # (Auto) Lymph # (Auto) [place] # (Auto) Eos # (Auto) Baso # (Auto) PT 12.2 INR 1.1 APTT 28 Sodium Potassium Chloride Carbon Dioxide Anion Gap BUN Creatinine Est GFR ( Amer) Est GFR (Non-Af Amer) Random Glucose Calcium Phosphorus Magnesium Total Bilirubin AST ALT Alkaline Phosphatase Total Protein Albumin Globulin Albumin/Globulin Ratio Hepatitis A IgM Ab Negative Hep Bs Antigen Negative Hep B Core IgM Ab Negative Hepatitis C Antibody Negative Blood Type O POSITIVE Antibody Screen Negative 01/08/18 01/08/18 06:53 06:53 WBC 8.5 RBC 4.65 Hgb 12.2 Hct 36.7 MCV 78.9 L MCH 26.2 L MCHC 33.2 RDW 12.7 Plt Count 193 MPV 10.3 Neut % (Auto) 62.3 Lymph % (Auto) 29.0 [place] % (Auto) 7.8 Eos % (Auto) 0.3 Baso % (Auto) 0.6 Neut # (Auto) 5.3 Lymph # (Auto) 2.5 [place] # (Auto) 0.7 Eos # (Auto) 0.0 Baso # (Auto) 0.1 PT INR APTT Sodium 141 Potassium 4.0 Chloride 105 Carbon Dioxide 27 Anion Gap 13 BUN 13 Creatinine 0.8 Est GFR ( Amer) > 60 Est GFR (Non-Af Amer) > 60 Random Glucose 84 Calcium 8.6 Phosphorus 2.7 Magnesium 2.0 Total Bilirubin 0.9 AST 197 H D ALT 297 H D Alkaline Phosphatase 40 Total Protein 6.5 Albumin 3.9 Globulin 2.5 Albumin/Globulin Ratio 1.6 Hepatitis A IgM Ab Hep Bs Antigen Hep B Core IgM Ab Hepatitis C Antibody Blood Type Antibody Screen Assessment & Plan - Assessment and Plan (Free Text) Plan: 27yo female with no significant past medical history presents c/o intractable nausea and vomiting associated with epigastric/RUQ abdominal pain 1. Abdominal pain/Nausea/vomiting 2. Elevated LFT's -Symptomatology likely secondary to gastroenteritis and would proceed with conservative treatment at this time however autoimmune workup is pending although unlikely given acute onset of symptoms -Hep panel negative -Autoimmune workup pending -CT abd/pelvis, abdominal US and HIDA scan reviewed - test negative -Continue with protonix, rocephin and standing zofran at the present time -Start CLD to be advanced as tolerated Patient seen and case discussed/reviewed with attending, Dr. Vidal <Arturo Vidal Y - Last Filed: 01/08/18 10:57> Meds - Medications Medications: Current Medications Lactated Ringer's (Lactated Ringer's) 1,000 mls @ 100 mls/hr IV .Q10H [facility] Last Admin: 01/08/18 08:47 Dose: Not Given Ceftriaxone Sodium 1 gm/ (Sodium Chloride) 100 mls @ 100 mls/hr IVPB Q12H [facility] PRN Reason: Protocol Last Admin: 01/08/18 09:15 Dose: 100 mls/hr Metoclopramide HCl (Reglan) 10 mg IVP Q6H PRN PRN Reason: Nausea/Vomiting Ondansetron HCl (Zofran Inj) 4 mg IVP Q6H [facility] Last Admin: 01/08/18 09:15 Dose: Not Given Pantoprazole Sodium (Protonix Inj) 40 mg IVP DAILY [facility] Last Admin: 01/08/18 09:16 Dose: 40 mg Pneumococcal Polyvalent Vaccine (Pneumovax 23 Vaccine) 0.5 ml IM .ONCE ONE Stop: 01/10/18 10:01 Results - Vital Signs Recent Vital Signs: Last Vital Signs Temp 98.1 F 01/08/18 07:57 Pulse 49 L 01/08/18 07:57 Resp 20 01/08/18 07:57 BP 107/68 01/08/18 07:57 Pulse Ox 99 01/08/18 07:57 - Labs Result Diagrams: 01/08/18 06:53 01/08/18 06:53 Labs: Laboratory Results - last 24 hr 01/07/18 01/07/18 01/07/18 11:33 11:33 20:18 WBC RBC Hgb Hct MCV MCH MCHC RDW Plt Count MPV Neut % (Auto) Lymph % (Auto) [place] % (Auto) Eos % (Auto) Baso % (Auto) Neut # (Auto) Lymph # (Auto) [place] # (Auto) Eos # (Auto) Baso # (Auto) PT 12.2 INR 1.1 APTT 28 Sodium Potassium Chloride Carbon Dioxide Anion Gap BUN Creatinine Est GFR ( Amer) Est GFR (Non-Af Amer) Random Glucose Calcium Phosphorus Magnesium Total Bilirubin AST ALT Alkaline Phosphatase Total Protein Albumin Globulin Albumin/Globulin Ratio Hepatitis A IgM Ab Negative Hep Bs Antigen Negative Hep B Core IgM Ab Negative Hepatitis C Antibody Negative Blood Type O POSITIVE Antibody Screen Negative 01/08/18 01/08/18 06:53 06:53 WBC 8.5 RBC 4.65 Hgb 12.2 Hct 36.7 MCV 78.9 L MCH 26.2 L MCHC 33.2 RDW 12.7 Plt Count 193 MPV 10.3 Neut % (Auto) 62.3 Lymph % (Auto) 29.0 [place] % (Auto) 7.8 Eos % (Auto) 0.3 Baso % (Auto) 0.6 Neut # (Auto) 5.3 Lymph # (Auto) 2.5 [place] # (Auto) 0.7 Eos # (Auto) 0.0 Baso # (Auto) 0.1 PT INR APTT Sodium 141 Potassium 4.0 Chloride 105 Carbon Dioxide 27 Anion Gap 13 BUN 13 Creatinine 0.8 Est GFR ( Amer) > 60 Est GFR (Non-Af Amer) > 60 Random Glucose 84 Calcium 8.6 Phosphorus 2.7 Magnesium 2.0 Total Bilirubin 0.9 AST 197 H D ALT 297 H D Alkaline Phosphatase 40 Total Protein 6.5 Albumin 3.9 Globulin 2.5 Albumin/Globulin Ratio 1.6 Hepatitis A IgM Ab Hep Bs Antigen Hep B Core IgM Ab Hepatitis C Antibody Blood Type Antibody Screen Attending/Attestation - Attestation I have personally seen and examined this patient.: Yes I have fully participated in the care of the patient.: Yes I have reviewed all pertinent clinical information: Yes Notes (Text): 01/08/18 10:51 I have seen and examined patient with GI fellow and certified medical records coder. Agree with above documentation with the following additions. In brief, this is a 27 year old female without significant past medical history who presents to hospital with complaint of progressive abdominal pain, nausea, and vomiting. Symptoms began suddenly 3 days ago following consumption of chicken sandwich, prior to this she was in usual state of health. She describes sudden onset sharp, 10/10 intensity epigastric abdominal pain radiating to RUQ associated with multiple episodes of non-bloody emesis. She otherwise denies fever/chills , weight loss, jaundice, pruritis, similar prior episodes, sick contacts, travel , or recent antibiotic use. No prior endoscopic evaluation. Additional physical examination: Abdomen: no palpable hepato/splenomegaly Abdominal pain Vomiting Transaminitis CT and abdominal US imaging reviewed by me showing thickened gallbladder wall with trace rosi-cholecystic fluid, no biliary dilation - Clear liquid diet as tolerated - Anti-emetic therapy PRN - Continue with antibiotic therapy given concern for potential cholecystitis - HIDA negative, obtain blood cultures - Obtain viral hepatitis and autoimmune panel testing - Continue with supportive care, IVF hydration therapy. Will continue to monitor patient clinical course.
[2018-01-08] MEDS: metroNIDAZOLE IV 500 mg/100 ml 500 MG/100 ML BAG IVPB SCH ×2 (13:27→22:39)
[2018-01-08] MEDS ORDERED: Sucralfate 1 gm/10 ml Oral Susp UD PO ONE (15:15)
--- NOTE | 2018-01-08 15:49 | CP.PCM.PN ---
Subjective - Date & Time of Evaluation Date of Evaluation: 01/08/18 Time of Evaluation: 10:05 - Subjective Subjective: PGY1 Medicine Note for Dr. Oconnell Patient seen and examined at bedside this morning. Patient attempted to start a clear liquid diet last night. After a couple of spoon fulls, patient began to dry heave and vomit all night. Patient has been needing anti-nausea medicine throughout the night and early childhood associate. She is fatigued because she has not been able to sleep for longer than one hour at a time due to the nausea/ vomiting and abdominal pain. Her pain used to be diffuse, with the most sharp pain being in the RUQ but now patient is also experiencing pain the LLQ that is also sharp in nature. Patient does not want to see food at this time because the sight of it alone causes her to be nauseous. Objective - Vital Signs/Intake and Output Vital Signs (last 24 hours): Temp Pulse Resp BP Pulse Ox 98.1 F 49 L 20 107/68 99 01/08/18 07:57 01/08/18 07:57 01/08/18 07:57 01/08/18 07:57 01/08/18 07:57 Intake and Output: 01/08/18 01/08/18 06:59 18:59 Intake Total 800 Balance 800 - Medications Medications: Current Medications Lactated Ringer's (Lactated Ringer's) 1,000 mls @ 100 mls/hr IV .Q10H [facility] Last Admin: 01/08/18 13:29 Dose: 100 mls/hr Ceftriaxone Sodium 1 gm/ (Sodium Chloride) 100 mls @ 100 mls/hr IVPB Q12H [facility] PRN Reason: Protocol Last Admin: 01/08/18 09:15 Dose: 100 mls/hr Metronidazole (Flagyl) 500 mg in 100 mls @ 100 mls/hr IVPB Q8 [facility] PRN Reason: Protocol Last Admin: 01/08/18 13:27 Dose: 100 mls/hr Ketorolac Tromethamine (Toradol) 30 mg IVP Q6 PRN PRN Reason: Pain, moderate (4-7) Lorazepam (Ativan) 0.5 mg IVP HS ONE Stop: 01/08/18 22:01 Metoclopramide HCl (Reglan) 10 mg IVP Q6H PRN PRN Reason: Nausea/Vomiting Ondansetron HCl (Zofran Inj) 4 mg IVP Q4H [facility] Pantoprazole Sodium (Protonix Inj) 40 mg IVP DAILY [facility] Last Admin: 01/08/18 09:16 Dose: 40 mg Pneumococcal Polyvalent Vaccine (Pneumovax 23 Vaccine) 0.5 ml IM .ONCE ONE Stop: 01/10/18 10:01 - Labs Labs: 01/08/18 06:53 01/08/18 06:53 PT 12.2 SECONDS (9.7-12.2) 01/07/18 11:33 INR 1.1 01/07/18 11:33 APTT 28 SECONDS (21-34) 01/07/18 11:33 - Constitutional Appears: Other (appears uncomfortable and tired.) - Head Exam Head Exam: ATRAUMATIC - Eye Exam Eye Exam: Normal appearance - ENT Exam ENT Exam: Mucous Membranes Moist - Neck Exam Neck Exam: absent: Lymphadenopathy - Respiratory Exam Respiratory Exam: Clear to Ausculation Bilateral, NORMAL BREATHING PATTERN. absent: Accessory Muscle Use, Rales, Rhonchi, Wheezes, Respiratory Distress - Cardiovascular Exam Cardiovascular Exam: REGULAR RHYTHM, +S1, +S2 - GI/Abdominal Exam GI & Abdominal Exam: Soft, Tenderness (LLQ>RUQ and diffuse). absent: Distended , Firm, Guarding, Rigid - Extremities Exam Extremities Exam: absent: Calf Tenderness, Pedal Edema - Back Exam Back Exam: absent: CVA tenderness (L), CVA tenderness (R) - Neurological Exam Neurological Exam: Alert, Awake, CN II-XII Intact, Oriented x3 - Psychiatric Exam Psychiatric exam: Normal Affect, Normal Mood - Skin Skin Exam: Dry, Warm Assessment and Plan - Assessment and Plan (Free Text) Plan: Abdominal Pain, Vomiting, Transaminitis General Surgery consulted, Dr. Rose - help appreciated * Hida Scan - negative * No surgical intervention at this time. GI consulted, Dr. Vidal - help appreciated * Anti-emetic therapy * continue abx for potential cholecystitis * viral hepatitis and autoimmune panel tests pending * Clear liquid diet as tolerated * continue supporitive care, IVF hydration CT abd/pelvis 01/06: Gallbladder wall thickening. Recommend ultrasound. Abd US 01/07: Gallbladder wall thickening with pericholecystic fluid and positive Patel's sign. CXR 01/07: No focal infiltrate or effusion. Abd Xray 01/08: pending AST 197 uptrending ALT 297 uptrending Alk Phos 40 stable T.bili 0.9 Rocephin 1gm IVPB q12h (started on 01/07) Reglan 10mg IVP q6h prn - patient reports agitation Zofran 4mg IVP q4h morena Toradol 30mg IVP q6h prn Ativan 0.5mg IVP qHS Carafate liquid once LR @100mL/hr Bradycardia asymptomatic EKG - pending TSH/free T4 - pending Hypokalemia resolved continue to monitor Prophylactic Care SCDs only No anticoag at this time due to potential surgical procedure. DISPO: Conservative management at this time. Patient still not tolerating anything orally. Case discussed with Dr. Kourtney Colbert Otis PGY1
--- NOTE | 2018-01-08 16:03 | RAD ---
HISTORY: abdominal pain, no BM in 4 days COMPARISON: No prior. FINDINGS: BOWEL: No evidence mechanical bowel obstruction. No gross free intraperitoneal air seen on this limited supine view of the abdomen. BONES: Normal. OTHER FINDINGS: Situ umbilical ring. IMPRESSION: No evidence acute mechanical bowel obstruction.
[2018-01-08 16:54] VITALS: O2SAT 100
--- NOTE | 2018-01-08 21:35 | CP.PCM.CON ---
History of Present Illness - History of Present Illness History of Present Illness: Reason For Consult: Bradycardia 27F with no past medical history presents with nausea, vomiting. Patient was seen in ED yesterday 01/05 for same symptoms. Patient states she ate chicken at a restaurant the day before. Patient denies fever, chills, numbness, weakness, tingling, acid reflux. Patient admits to mid-epigastric pain, nausea, vomiting. Patient takes control at home and has been taking the same one for the past three months. PMH: none Past surgical: none Social: smoker 2-3 cig per day for the past year. no illicit drugs. social etoh once a month allergies: NKDA Review of Systems - Review of Systems All systems: reviewed and no additional remarkable complaints except Physical Exam - Constitutional Appears: Non-toxic, No Acute Distress - Head Exam Head Exam: ATRAUMATIC, NORMAL INSPECTION, NORMOCEPHALIC - Eye Exam Eye Exam: EOMI, Normal appearance - ENT Exam ENT Exam: Mucous Membranes Dry - Neck Exam Neck exam: Positive for: Full Rom. Negative for: Tenderness, Thyromegaly - Respiratory Exam Respiratory Exam: NORMAL BREATHING PATTERN. absent: Accessory Muscle Use - Cardiovascular Exam Cardiovascular Exam: REGULAR RHYTHM, +S1, +S2 - GI/Abdominal Exam GI & Abdominal Exam: Soft, Tenderness (midepigastric pain to deep palpation, ruq pain to deep palpation. positive langston's sign). absent: Distended, Firm, Pulsatile Mass, Rebound, Rigid - Extremities Exam Extremities exam: Positive for: full ROM. Negative for: pedal edema - Neurological Exam Neurological exam: Alert, CN II-XII Intact, Reflexes Normal - Psychiatric Exam Psychiatric exam: Flat Affect, Normal Mood - Skin Skin Exam: Dry, Intact, Normal Color, Warm Past Patient History - Past Medical History & Family History Past Medical History?: No - Past Social History Smoking Status: Light Smoker < 10 Cigarettes Daily Chewing Tobacco Use: No Cigar Use: No Alcohol: Social Drugs: Denies - ENDOCRINE/METABOLIC Other/Comment: PRE DIABETIC - PSYCHIATRIC Hx Substance Use: No - SURGICAL HISTORY Hx Surgeries: No Meds Allergies/Adverse Reactions: Allergies Allergy/AdvReac Type Severity Reaction Status Date / Time No Known Allergies Allergy Unverified 01/05/18 17:42 - Medications Medications: Current Medications Lactated Ringer's (Lactated Ringer's) 1,000 mls @ 100 mls/hr IV .Q10H [facility] Last Admin: 01/08/18 21:30 Dose: Not Given Ceftriaxone Sodium 1 gm/ (Sodium Chloride) 100 mls @ 100 mls/hr IVPB Q12H [facility] PRN Reason: Protocol Last Admin: 01/08/18 21:20 Dose: 100 mls/hr Metronidazole (Flagyl) 500 mg in 100 mls @ 100 mls/hr IVPB Q8 [facility] PRN Reason: Protocol Last Admin: 01/08/18 13:27 Dose: 100 mls/hr Ketorolac Tromethamine (Toradol) 30 mg IVP Q6 PRN PRN Reason: Pain, moderate (4-7) Lorazepam (Ativan) 0.5 mg IVP HS [facility] Metoclopramide HCl (Reglan) 10 mg IVP Q6H PRN PRN Reason: Nausea/Vomiting Ondansetron HCl (Zofran Inj) 4 mg IVP Q4H [facility] Last Admin: 01/08/18 21:29 Dose: 4 mg Pantoprazole Sodium (Protonix Inj) 40 mg IVP DAILY [facility] Last Admin: 01/08/18 09:16 Dose: 40 mg Pneumococcal Polyvalent Vaccine (Pneumovax 23 Vaccine) 0.5 ml IM .ONCE ONE Stop: 01/10/18 10:01 Results - Vital Signs Recent Vital Signs: Last Vital Signs Temp 97.4 F L 01/08/18 16:53 Pulse 51 L 01/08/18 16:53 Resp 20 01/08/18 16:53 BP 109/68 01/08/18 16:53 Pulse Ox 100 01/08/18 16:53 - Labs Result Diagrams: 01/08/18 06:53 01/08/18 06:53 Labs: Laboratory Results - last 24 hr 01/07/18 01/08/18 01/08/18 20:18 06:53 06:53 WBC 8.5 RBC 4.65 Hgb 12.2 Hct 36.7 MCV 78.9 L MCH 26.2 L MCHC 33.2 RDW 12.7 Plt Count 193 MPV 10.3 Neut % (Auto) 62.3 Lymph % (Auto) 29.0 [place] % (Auto) 7.8 Eos % (Auto) 0.3 Baso % (Auto) 0.6 Neut # (Auto) 5.3 Lymph # (Auto) 2.5 [place] # (Auto) 0.7 Eos # (Auto) 0.0 Baso # (Auto) 0.1 Sodium 141 Potassium 4.0 Chloride 105 Carbon Dioxide 27 Anion Gap 13 BUN 13 Creatinine 0.8 Est GFR ( Amer) > 60 Est GFR (Non-Af Amer) > 60 Random Glucose 84 Calcium 8.6 Phosphorus 2.7 Magnesium 2.0 Total Bilirubin 0.9 AST 197 H D ALT 297 H D Alkaline Phosphatase 40 Total Protein 6.5 Albumin 3.9 Globulin 2.5 Albumin/Globulin Ratio 1.6 IgG Hepatitis C Antibody Negative 01/08/18 11:37 WBC RBC Hgb Hct MCV MCH MCHC RDW Plt Count MPV Neut % (Auto) Lymph % (Auto) [place] % (Auto) Eos % (Auto) Baso % (Auto) Neut # (Auto) Lymph # (Auto) [place] # (Auto) Eos # (Auto) Baso # (Auto) Sodium Potassium Chloride Carbon Dioxide Anion Gap BUN Creatinine Est GFR ( Amer) Est GFR (Non-Af Amer) Random Glucose Calcium Phosphorus Magnesium Total Bilirubin AST ALT Alkaline Phosphatase Total Protein Albumin Globulin Albumin/Globulin Ratio IgG 718.2 Hepatitis C Antibody Assessment & Plan - Assessment and Plan (Free Text) Assessment: Bradycardia asymptomatic EKG - pending TSH/free T4 - pending Most likely vagal Check TSH ECHO Hypokalemia resolved continue to monitor
[2018-01-09] MEDS: Lactated Ringer's 1,000 ML IV SCH (04:08)
[2018-01-09] MEDS: metroNIDAZOLE IV 500 mg/100 ml 500 MG/100 ML BAG IVPB SCH ×3 (05:43→22:17)
[2018-01-09 07:13] LABS: BASO % 0.7 % (0.0-2.0); EOS # 0.1 K/uL (0.0-0.7); EOS % 1.5 % (0.0-4.0); LYMPH # 2.2 K/uL (1.0-4.3); LYMPH % 34.8 % (20.0-40.0); MEAN CELL VOLUME 77.5 fL (81.0-99.0); MEAN CORPUSCULAR HEMOGLOBIN 25.9 pg (27.0-31.0); MEAN CORPUSCULAR HGB CONC 33.4 g/dL (33.0-37.0); MEAN PLATELET VOLUME 9.9 fL (7.2-11.7); MONO # 0.5 K/uL (0.0-0.8); MONO % 7.9 % (0.0-10.0); NEUT # 3.6 K/uL (1.8-7.0); NEUT % 55.1 % (50.0-75.0); NRBC % 0.1 % (0.0-2.0); RBC 4.24 Mil/uL (3.80-5.20); RED CELL DISTRIBUTION WIDTH 12.5 % (11.5-14.5); WHITE BLOOD COUNT 6.5 K/uL (4.8-10.8)
[2018-01-09] MEDS ORDERED: Sucralfate 1 gm/10 ml Oral Susp UD PO ONE (07:40)
[2018-01-09 07:45] LABS: ALB/GLOB RATIO 1.4 (1.0-2.1); ALT/SGPT 271 U/L (9-52); AST/SGOT 122 U/L (14-36); BLOOD UREA NITROGEN 14 mg/dL (7-17); CALCIUM 7.9 mg/dl (8.6-10.4); GFR AFRICAN-AMERICAN > 60; GFR NON-AFRICAN AMERICAN > 60
--- NOTE | 2018-01-09 10:36 | CP.PCM.PN ---
<Barry Kaur - Last Filed: 01/09/18 12:55> Subjective - Date & Time of Evaluation Date of Evaluation: 01/09/18 Time of Evaluation: 10:32 - Subjective Subjective: GI Progress note - Chris Kaur PGY2 Patient seen and examined at bedside this morning. No acute overnight events or new complaints reported. She reports having menstrual cramps with her current period that started today. Reported one episode of bilious vomiting this morning. Denies chest pain, palpitations, SOB. 12point ROS as per above otherwise negative Objective - Vital Signs/Intake and Output Vital Signs (last 24 hours): Temp Pulse Resp BP Pulse Ox 98.4 F 58 L 20 116/62 100 01/09/18 08:09 01/09/18 08:09 01/09/18 08:09 01/09/18 08:09 01/09/18 08:09 Intake and Output: 01/09/18 01/09/18 06:59 18:59 Intake Total 860 Balance 860 - Medications Medications: Current Medications Ceftriaxone Sodium 1 gm/ (Sodium Chloride) 100 mls @ 100 mls/hr IVPB Q12H [facility] PRN Reason: Protocol Last Admin: 01/08/18 21:20 Dose: 100 mls/hr Metronidazole (Flagyl) 500 mg in 100 mls @ 100 mls/hr IVPB Q8 [facility] PRN Reason: Protocol Last Admin: 01/09/18 05:43 Dose: 100 mls/hr Potassium Chloride (Potassium Chloride 20 Meq/100 Ml) 20 meq in 100 mls @ 50 mls/hr IVPB ONCE ONE Stop: 01/09/18 11:58 Ketorolac Tromethamine (Toradol) 30 mg IVP Q6 PRN PRN Reason: Pain, moderate (4-7) Lorazepam (Ativan) 0.5 mg IVP HS [facility] Last Admin: 01/08/18 22:38 Dose: 0.5 mg Metoclopramide HCl (Reglan) 10 mg IVP Q6H PRN PRN Reason: Nausea/Vomiting Ondansetron HCl (Zofran Inj) 4 mg IVP Q4H [facility] Last Admin: 01/09/18 05:44 Dose: Not Given Pantoprazole Sodium (Protonix Inj) 40 mg IVP DAILY [facility] Last Admin: 01/08/18 09:16 Dose: 40 mg Pneumococcal Polyvalent Vaccine (Pneumovax 23 Vaccine) 0.5 ml IM .ONCE ONE Stop: 01/10/18 10:01 - Labs Labs: 01/09/18 07:00 01/09/18 07:00 PT 12.2 SECONDS (9.7-12.2) 01/07/18 11:33 INR 1.1 01/07/18 11:33 APTT 28 SECONDS (21-34) 01/07/18 11:33 - Constitutional Appears: Non-toxic, No Acute Distress - Head Exam Head Exam: ATRAUMATIC, NORMAL INSPECTION, NORMOCEPHALIC - Eye Exam Eye Exam: EOMI Pupil Exam: PERRL - ENT Exam ENT Exam: Mucous Membranes Moist - Respiratory Exam Respiratory Exam: Clear to Ausculation Bilateral. absent: Rales, Rhonchi, Wheezes - Cardiovascular Exam Cardiovascular Exam: +S1, +S2. absent: Gallop, JVD, Rubs, Murmur - GI/Abdominal Exam GI & Abdominal Exam: Soft, Tenderness. absent: Distended, Firm, Guarding, Rigid , Rebound - Extremities Exam Extremities Exam: Normal Inspection. absent: Pedal Edema - Neurological Exam Neurological Exam: Alert, Awake, CN II-XII Intact, Oriented x3 - Psychiatric Exam Psychiatric exam: Normal Affect, Normal Mood - Skin Skin Exam: Dry, Intact, Normal Color, Warm Assessment and Plan - Assessment and Plan (Free Text) Plan: 27yo female with no significant past medical history presents c/o intractable nausea and vomiting associated with epigastric/RUQ abdominal pain 1. Abdominal pain/Nausea/vomiting 2. Elevated LFT's -In light of continued symptomatology recommend attempting to advance diet this afternoon, if unsuccessful may consider proceeding with EGD in the morning -LFT's noted to be downtrending this morning -Hep panel negative -IgG within normal limits, ANABELLA negative -Remaining autoimmune workup pending -CT abd/pelvis, abdominal US and HIDA scan reviewed -Continue with protonix, rocephin and standing zofran at the present time -CLD advanced as tolerated - test negative Case discussed with attending, Dr. Piña <Herman Piña - Last Filed: 01/09/18 16:45> Objective - Vital Signs/Intake and Output Vital Signs (last 24 hours): Temp Pulse Resp BP Pulse Ox 98.2 F 58 L 20 109/69 100 01/09/18 16:00 01/09/18 16:00 01/09/18 16:00 01/09/18 16:00 01/09/18 16:00 Intake and Output: 01/09/18 01/09/18 06:59 18:59 Intake Total 860 Balance 860 - Medications Medications: Current Medications Ceftriaxone Sodium 1 gm/ (Sodium Chloride) 100 mls @ 100 mls/hr IVPB Q12H [facility] PRN Reason: Protocol Last Admin: 01/09/18 10:00 Dose: 100 mls/hr Metronidazole (Flagyl) 500 mg in 100 mls @ 100 mls/hr IVPB Q8 [facility] PRN Reason: Protocol Last Admin: 01/09/18 14:12 Dose: 100 mls/hr Potassium Chloride 40 meq/ (Sodium Chloride) 1,020 mls @ 100 mls/hr IV .[id number] [facility] Stop: 01/09/18 22:41 Last Admin: 01/09/18 13:00 Dose: 100 mls/hr Ketorolac Tromethamine (Toradol) 30 mg IVP Q6 PRN PRN Reason: Pain, moderate (4-7) Lorazepam (Ativan) 0.5 mg IVP HS [facility] Last Admin: 01/08/18 22:38 Dose: 0.5 mg Metoclopramide HCl (Reglan) 10 mg IVP Q6H PRN PRN Reason: Nausea/Vomiting Ondansetron HCl (Zofran Inj) 4 mg IVP Q4H [facility] Last Admin: 01/09/18 14:15 Dose: 4 mg Pantoprazole Sodium (Protonix Inj) 40 mg IVP DAILY [facility] Last Admin: 01/09/18 10:00 Dose: 40 mg Pneumococcal Polyvalent Vaccine (Pneumovax 23 Vaccine) 0.5 ml IM .ONCE ONE Stop: 01/10/18 10:01 - Labs Labs: 01/09/18 07:00 01/09/18 07:00 PT 12.2 SECONDS (9.7-12.2) 01/07/18 11:33 INR 1.1 01/07/18 11:33 APTT 28 SECONDS (21-34) 01/07/18 11:33 Attending/Attestation - Attestation I have personally seen and examined this patient.: Yes I have fully participated in the care of the patient.: Yes I have reviewed all pertinent clinical information, including history, physical exam and plan: Yes Notes (Text): 01/09/18 16:44 27 year old female admitted with abdominal pain, nausea, and vomiting, as well as elevated lfts. Uncertain etiology. Although CT/US was suspcious for cholecystitis, HIDA was negative. She is on abx. She had an episode of bilious vomiting today. Continue IV PPI and anti-emetics. Recommend oral challenge again today. If she fails, this would plan for EGD tomorrow.
[2018-01-09 12:48] LABS: LIPASE 146 U/L (23-300)
--- NOTE | 2018-01-09 14:34 | CARD ---
APPROVED REPORT EKG Measurement Heart [id number] <Conclusion> Marked sinus bradycardia Abnormal ECG
--- NOTE | 2018-01-09 14:54 | CARD ---
APPROVED REPORT EXAM: Two-dimensional and M-mode echocardiogram with Doppler and color Doppler. Other Information Quality : GoodRhythm : INDICATION Abnormal EKG/Arrhythmia Bradycardia 2D DIMENSIONS IVSd0.8 (0.7-1.1cm)LVDd4.2 (3.9-5.9cm) PWd0.8 (0.7-1.1cm)LVDs2.7 (2.5-4.0cm) FS (%) 36.9 %LVEF (%)67.2 (>50%) M-Mode DIMENSIONS Left Atrium (MM)3.42 (2.5-4.0cm)IVSd0.83 (0.7-1.1cm) Aortic Root3.11 (2.2-3.7cm)LVDd4.56 (4.0-5.6cm) Aortic Cusp Exc.1.97 (1.5-2.0cm)PWd0.64 (0.7-1.1cm) FS (%) 45 %LVDs2.49 (2.0-3.8cm) LVEF (%)77 (>50%) Mitral Valve MV E Wgnxflgk028.7cm/sMV A Tkouatzv11.9cm/sE/A ratio1.6 TDI E/Lateral E'0.0E/Medial E'0.0 Tricuspid Valve TR Peak [id number]/sTR Peak [id number] LEFT VENTRICLE The left ventricle is normal size. There is normal left ventricular wall thickness. The left ventricular function is normal. The left ventricular ejection fraction is within the normal range. About 75% No regional wall motion abnormalities noted. The left ventricular diastolic function is normal. No left ventricle thrombus noted on this study. There is no ventricular septal defect visualized. There is no left ventricular aneurysm. There is no mass noted in the left ventricle. RIGHT VENTRICLE The right ventricle is normal size. There is normal right ventricular wall thickness. The right ventricular systolic function is normal. ATRIA The left atrium size is normal. The right atrium size is normal. The interatrial septum is intact with no evidence for an atrial septal defect. AORTIC VALVE The aortic valve is normal in structure and function. No aortic regurgitation is present. There is no aortic valvular stenosis. There is no aortic valvular vegetation. MITRAL VALVE The mitral valve is normal in structure and function. There is no evidence of mitral valve prolapse. There is no mitral valve stenosis. There is no mitral valve regurgitation noted. TRICUSPID VALVE The tricuspid valve is normal in structure and function. There is no tricuspid valve regurgitation noted. There is no tricuspid valve prolapse or vegetation. There is no tricuspid valve stenosis. PULMONIC VALVE The pulmonary valve is normal in structure and function. There is no pulmonic valvular regurgitation. There is no pulmonic valvular stenosis. GREAT VESSELS The aortic root is normal in size. The ascending aorta is normal in size. The pulmonary artery is normal. The IVC is normal in size and collapses >50% with inspiration. PERICARDIAL EFFUSION The pericardium appears normal. There is no pleural effusion. <Conclusion> Normal 2D echo and Doppler study
--- NOTE | 2018-01-09 15:24 | CP.PCM.PN ---
Subjective - Date & Time of Evaluation Date of Evaluation: 01/09/18 Time of Evaluation: 07:35 - Subjective Subjective: PGY1 Medicine Note for Dr. Oconnell Patient seen and examined at bedside this morning. No acute events overnight. Patient stated that she was feeling better and wanted to try some food this morning. She reports that her abdominal pain from yesterday was most likely menstrual cramps as she started to menstruate last night. Her pain has resolved and currently has no complaints. Still no BM. Denies fevers, chills, nausea, vomiting, chest pain, shortness of breath, palpations, abdominal pain. Objective - Vital Signs/Intake and Output Vital Signs (last 24 hours): Temp Pulse Resp BP Pulse Ox 98.4 F 58 L 20 116/62 100 01/09/18 08:09 01/09/18 08:09 01/09/18 08:09 01/09/18 08:09 01/09/18 08:09 Intake and Output: 01/09/18 01/09/18 06:59 18:59 Intake Total 860 Balance 860 - Medications Medications: Current Medications Ceftriaxone Sodium 1 gm/ (Sodium Chloride) 100 mls @ 100 mls/hr IVPB Q12H [facility] PRN Reason: Protocol Last Admin: 01/09/18 10:00 Dose: 100 mls/hr Metronidazole (Flagyl) 500 mg in 100 mls @ 100 mls/hr IVPB Q8 [facility] PRN Reason: Protocol Last Admin: 01/09/18 14:12 Dose: 100 mls/hr Potassium Chloride 40 meq/ (Sodium Chloride) 1,020 mls @ 100 mls/hr IV .[id number] [facility] Stop: 01/09/18 22:41 Last Admin: 01/09/18 13:00 Dose: 100 mls/hr Ketorolac Tromethamine (Toradol) 30 mg IVP Q6 PRN PRN Reason: Pain, moderate (4-7) Lorazepam (Ativan) 0.5 mg IVP HS [facility] Last Admin: 01/08/18 22:38 Dose: 0.5 mg Metoclopramide HCl (Reglan) 10 mg IVP Q6H PRN PRN Reason: Nausea/Vomiting Ondansetron HCl (Zofran Inj) 4 mg IVP Q4H [facility] Last Admin: 01/09/18 14:15 Dose: 4 mg Pantoprazole Sodium (Protonix Inj) 40 mg IVP DAILY [facility] Last Admin: 01/09/18 10:00 Dose: 40 mg Pneumococcal Polyvalent Vaccine (Pneumovax 23 Vaccine) 0.5 ml IM .ONCE ONE Stop: 01/10/18 10:01 - Labs Labs: 01/09/18 07:00 01/09/18 07:00 PT 12.2 SECONDS (9.7-12.2) 01/07/18 11:33 INR 1.1 01/07/18 11:33 APTT 28 SECONDS (21-34) 01/07/18 11:33 - Constitutional Appears: Non-toxic, No Acute Distress - Head Exam Head Exam: ATRAUMATIC, NORMOCEPHALIC - Eye Exam Eye Exam: Normal appearance - ENT Exam ENT Exam: Mucous Membranes Moist - Neck Exam Neck Exam: absent: Lymphadenopathy - Respiratory Exam Respiratory Exam: Clear to Ausculation Bilateral, Rales, NORMAL BREATHING PATTERN. absent: Accessory Muscle Use, Rhonchi, Wheezes, Respiratory Distress - Cardiovascular Exam Cardiovascular Exam: REGULAR RHYTHM, +S1, +S2 - GI/Abdominal Exam GI & Abdominal Exam: Soft, Tenderness (mild epigastric). absent: Distended, Firm, Guarding, Rigid - Extremities Exam Extremities Exam: absent: Calf Tenderness, Pedal Edema - Neurological Exam Neurological Exam: Alert, Awake, CN II-XII Intact, Oriented x3 - Psychiatric Exam Psychiatric exam: Normal Affect, Normal Mood - Skin Skin Exam: Dry, Warm Assessment and Plan - Assessment and Plan (Free Text) Plan: Abdominal Pain, Vomiting, Transaminitis Patient vomited in afternoon - made NPO again. will continue to monitor and will re-eval in morning. General Surgery consulted, Dr. Rose - help appreciated * Hida Scan - negative * No surgical intervention at this time. GI consulted, Dr. Vidal - help appreciated * Anti-emetic therapy * continue abx for potential cholecystitis * viral hepatitis and autoimmune panel tests pending * Clear liquid diet as tolerated * continue supporitive care, IVF hydration CT abd/pelvis 01/06: Gallbladder wall thickening. Recommend ultrasound. Abd US 01/07: Gallbladder wall thickening with pericholecystic fluid and positive Patel's sign. CXR 01/07: No focal infiltrate or effusion. Abd Xray 01/08: pending AST 122 downtrending ALT 271 downtrending Alk Phos 31 stable T.bili 0.5 Rocephin 1gm IVPB q12h (started on 01/07) Flagyl 500mg IVPB q8h (started on 01/08) Reglan 10mg IVP q6h prn - patient reports agitation Zofran 4mg IVP q4h [facility] Toradol 30mg IVP q6h prn Ativan 0.5mg IVP qHS Carafate liquid once Bradycardia Cardiology consulted, Dr. Jordan * most likely vagal * ECHO - pending asymptomatic EKG - sinus pedro luis TSH 1.28 free T4 1.84 Hypokalemia repleted continue to monitor Prophylactic Care SCDs only Protonix 40mg IVP daily DISPO: Conservative management at this time. Patient still not tolerating anything orally. Case discussed with Dr. Kourtney Colbert Otis PGY1
--- NOTE | 2018-01-09 22:20 | CP.PCM.PN ---
Subjective - Date & Time of Evaluation Date of Evaluation: 01/09/18 Time of Evaluation: 18:30 - Subjective Subjective: Patient without cardiac events Physical Exam - Constitutional Appears: Non-toxic, No Acute Distress - Head Exam Head Exam: ATRAUMATIC, NORMAL INSPECTION, NORMOCEPHALIC - Eye Exam Eye Exam: EOMI, Normal appearance - ENT Exam ENT Exam: Mucous Membranes Dry - Neck Exam Neck exam: Positive for: Full Rom. Negative for: Tenderness, Thyromegaly - Respiratory Exam Respiratory Exam: NORMAL BREATHING PATTERN. absent: Accessory Muscle Use - Cardiovascular Exam Cardiovascular Exam: REGULAR RHYTHM, +S1, +S2 - GI/Abdominal Exam GI & Abdominal Exam: Soft, Tenderness (midepigastric pain to deep palpation, ruq pain to deep palpation. positive langston's sign). absent: Distended, Firm, Pulsatile Mass, Rebound, Rigid - Extremities Exam Extremities exam: Positive for: full ROM. Negative for: pedal edema - Neurological Exam Neurological exam: Alert, CN II-XII Intact, Reflexes Normal - Psychiatric Exam Psychiatric exam: Flat Affect, Normal Mood - Skin Skin Exam: Dry, Intact, Normal Color, Warm Objective - Vital Signs/Intake and Output Vital Signs (last 24 hours): Temp Pulse Resp BP Pulse Ox 98.2 F 58 L 20 109/69 100 01/09/18 16:00 01/09/18 16:00 01/09/18 16:00 01/09/18 16:00 01/09/18 16:00 Intake and Output: 01/09/18 01/10/18 18:59 06:59 Intake Total 840 Balance 840 - Medications Medications: Current Medications Ceftriaxone Sodium 1 gm/ (Sodium Chloride) 100 mls @ 100 mls/hr IVPB Q12H [facility] PRN Reason: Protocol Last Admin: 01/09/18 21:41 Dose: 100 mls/hr Metronidazole (Flagyl) 500 mg in 100 mls @ 100 mls/hr IVPB Q8 [facility] PRN Reason: Protocol Last Admin: 01/09/18 22:17 Dose: 100 mls/hr Potassium Chloride 40 meq/ (Sodium Chloride) 1,020 mls @ 100 mls/hr IV .[id number] [facility] Stop: 01/09/18 22:41 Last Admin: 01/09/18 13:00 Dose: 100 mls/hr Ketorolac Tromethamine (Toradol) 30 mg IVP Q6 PRN PRN Reason: Pain, moderate (4-7) Lorazepam (Ativan) 0.5 mg IVP HS [facility] Last Admin: 01/08/18 22:38 Dose: 0.5 mg Metoclopramide HCl (Reglan) 10 mg IVP Q6H PRN PRN Reason: Nausea/Vomiting Ondansetron HCl (Zofran Inj) 4 mg IVP Q4H [facility] Last Admin: 01/09/18 21:45 Dose: 4 mg Pantoprazole Sodium (Protonix Inj) 40 mg IVP DAILY [facility] Last Admin: 01/09/18 10:00 Dose: 40 mg Pneumococcal Polyvalent Vaccine (Pneumovax 23 Vaccine) 0.5 ml IM .ONCE ONE Stop: 01/10/18 10:01 - Labs Labs: 01/09/18 07:00 01/09/18 07:00 PT 12.2 SECONDS (9.7-12.2) 01/07/18 11:33 INR 1.1 01/07/18 11:33 APTT 28 SECONDS (21-34) 01/07/18 11:33 Assessment and Plan - Assessment and Plan (Free Text) Assessment: 1. Episode of bradycardia Most likely vagal ECHO, Trops and TSH normal No further cardiac work up needed Thank you
[2018-01-10] MEDS: metroNIDAZOLE IV 500 mg/100 ml 500 MG/100 ML BAG IVPB SCH (05:30)
[2018-01-10 08:03] VITALS: BP 123/79; PULSE 59; RESP 20; TEMP 98.1
--- NOTE | 2018-01-10 08:22 | CP.PCM.PN ---
<Barry Kaur - Last Filed: 01/10/18 08:18> Subjective - Date & Time of Evaluation Date of Evaluation: 01/10/18 Time of Evaluation: 08:18 - Subjective Subjective: GI Progress note - DailyTracy Natasha PGY2 Patient seen and examined at bedside this morning. No acute overnight events or new complaints reported. Patient states that she tolerated liquids yesterday afternoon without any more nausea/vomiting. Abd pain has improved as well. Willing to try regular diet today. 12point ROS as per above otherwise negative. Objective - Vital Signs/Intake and Output Vital Signs (last 24 hours): Temp Pulse Resp BP Pulse Ox 98.1 F 59 L 20 123/79 100 01/10/18 08:01 01/10/18 08:01 01/10/18 08:01 01/10/18 08:01 01/10/18 08:01 - Medications Medications: Current Medications Cefpodoxime Proxetil (Vantin) 400 mg PO Q12H NARCISO PRN Reason: Protocol Ketorolac Tromethamine (Toradol) 30 mg IVP Q6 PRN PRN Reason: Pain, moderate (4-7) Lorazepam (Ativan) 0.5 mg IVP HS [facility] Last Admin: 01/09/18 22:32 Dose: 0.5 mg Metoclopramide HCl (Reglan) 10 mg IVP Q6H PRN PRN Reason: Nausea/Vomiting Last Admin: 01/10/18 05:27 Dose: 10 mg Metronidazole (Flagyl) 500 mg PO Q8 NARCISO PRN Reason: Protocol Ondansetron HCl (Zofran Inj) 4 mg IVP Q4H [facility] Last Admin: 01/10/18 06:20 Dose: Not Given Pantoprazole Sodium (Protonix Inj) 40 mg IVP DAILY [facility] Last Admin: 01/09/18 10:00 Dose: 40 mg Pneumococcal Polyvalent Vaccine (Pneumovax 23 Vaccine) 0.5 ml IM .ONCE ONE Stop: 01/10/18 10:01 - Labs Labs: 01/09/18 07:00 01/09/18 07:00 PT 12.2 SECONDS (9.7-12.2) 01/07/18 11:33 INR 1.1 01/07/18 11:33 APTT 28 SECONDS (21-34) 01/07/18 11:33 - Constitutional Appears: Non-toxic, No Acute Distress - Head Exam Head Exam: ATRAUMATIC, NORMAL INSPECTION, NORMOCEPHALIC - Eye Exam Eye Exam: EOMI Pupil Exam: PERRL - ENT Exam ENT Exam: Mucous Membranes Moist - Cardiovascular Exam Cardiovascular Exam: +S1, +S2. absent: Gallop, JVD, Rubs - GI/Abdominal Exam GI & Abdominal Exam: Soft, Normal Bowel Sounds. absent: Distended, Firm, Guarding, Rigid, Tenderness, Rebound - Extremities Exam Extremities Exam: Normal Inspection. absent: Pedal Edema - Neurological Exam Neurological Exam: Alert, Awake, CN II-XII Intact, Oriented x3 - Psychiatric Exam Psychiatric exam: Normal Affect, Normal Mood - Skin Skin Exam: Dry, Intact, Normal Color, Warm Assessment and Plan - Assessment and Plan (Free Text) Plan: 27yo female with no significant past medical history presents c/o intractable nausea and vomiting associated with epigastric/RUQ abdominal pain 1. Abdominal pain/Nausea/vomiting 2. Elevated LFT's -Advanced diet to regular with instruction to eat small amounts of predominantly bland foods -IV abx converted to PO -Hep panel negative -IgG within normal limits, ANABELLA negative -Remaining autoimmune workup pending -CT abd/pelvis, abdominal US and HIDA scan reviewed - test negative -No further GI workup/intervention anticipated at this time, we will sign off this case, please reconsult as deemed necessary. Case discussed with attending, Dr. Vidal <Arturo Vidal - Last Filed: 01/10/18 11:45> Objective - Vital Signs/Intake and Output Vital Signs (last 24 hours): Temp Pulse Resp BP Pulse Ox 98.1 F 59 L 20 123/79 100 01/10/18 08:01 01/10/18 08:01 01/10/18 08:01 01/10/18 08:01 01/10/18 08:01 - Medications Medications: Current Medications Cefpodoxime Proxetil (Vantin) 400 mg PO Q12H NARCISO PRN Reason: Protocol Last Admin: 01/10/18 10:13 Dose: 400 mg Ketorolac Tromethamine (Toradol) 30 mg IVP Q6 PRN PRN Reason: Pain, moderate (4-7) Lorazepam (Ativan) 0.5 mg IVP HS [facility] Last Admin: 01/09/18 22:32 Dose: 0.5 mg Metoclopramide HCl (Reglan) 10 mg IVP Q6H PRN PRN Reason: Nausea/Vomiting Last Admin: 01/10/18 05:27 Dose: 10 mg Metronidazole (Flagyl) 500 mg PO Q8 NARCISO PRN Reason: Protocol Ondansetron HCl (Zofran Inj) 4 mg IVP Q4H [facility] Last Admin: 01/10/18 09:34 Dose: Not Given Pantoprazole Sodium (Protonix Inj) 40 mg IVP DAILY [facility] Last Admin: 01/10/18 09:34 Dose: Not Given - Labs Labs: 01/10/18 08:29 01/10/18 08:29 PT 12.2 SECONDS (9.7-12.2) 01/07/18 11:33 INR 1.1 01/07/18 11:33 APTT 28 SECONDS (21-34) 01/07/18 11:33 Attending/Attestation - Attestation I have personally seen and examined this patient.: Yes I have fully participated in the care of the patient.: Yes I have reviewed all pertinent clinical information, including history, physical exam and plan: Yes Notes (Text): 01/10/18 11:43 I have seen and examined patient with GI fellow and emergency medical technician. No acute events overnight, her abdominal pain has resolved and she has not had any recurrent vomiting. She is able to tolerate PO liquids without difficulty. Review of vitals from today are normal. Abdominal pain, vomiting - resolved Transaminitis Cholecystitis - Advance diet as tolerated - Continue with antibiotic therapy to complete 10 day course - LFTs trending down, continue to monitor. Follow up remainder of autoimmune panel results. - From GI standpoint if tolerating PO diet, ok to discharge home with subsequent outpatient follow up. No further planned GI intervention, will sign off case. Please reconsult as necessary, thank you.
[2018-01-10 08:44] LABS: BASO % 0.7 % (0.0-2.0); EOS # 0.1 K/uL (0.0-0.7); EOS % 2.7 % (0.0-4.0); HEMOGLOBIN 11.1 g/dL (11.0-16.0); LYMPH # 1.5 K/uL (1.0-4.3); LYMPH % 30.4 % (20.0-40.0); MEAN CELL VOLUME 77.3 fL (81.0-99.0); MEAN CORPUSCULAR HEMOGLOBIN 26.1 pg (27.0-31.0); MEAN CORPUSCULAR HGB CONC 33.8 g/dL (33.0-37.0); MEAN PLATELET VOLUME 10.5 fL (7.2-11.7); MONO # 0.6 K/uL (0.0-0.8); NEUT # 2.8 K/uL (1.8-7.0); NEUT % 55.2 % (50.0-75.0); NRBC % 0.1 % (0.0-2.0); RBC 4.27 Mil/uL (3.80-5.20); RED CELL DISTRIBUTION WIDTH 11.9 % (11.5-14.5)
[2018-01-10 09:10] LABS: ALB/GLOB RATIO 1.3 (1.0-2.1); ALT/SGPT 229 U/L (9-52); AST/SGOT 81 U/L (14-36); BLOOD UREA NITROGEN 11 mg/dL (7-17); CALCIUM 7.9 mg/dl (8.6-10.4); GFR AFRICAN-AMERICAN > 60; GFR NON-AFRICAN AMERICAN > 60
[2018-01-10] MEDS ORDERED: Pneumococcal 23-Valent Vaccine IM ONE (10:00)
[2018-01-10] MEDS ORDERED: Cefpodoxime (Vantin) 200 mg Tab PO SCH (10:00)
--- NOTE | 2018-01-10 16:08 | CP.PCM.DIS ---
Provider - Provider Date of Admission: 01/07/18 03:11 Attending physician: Grupo Smith MD Hospital Course - Lab Results Lab Results: Micro Results 01/08/18 17:02 Blood Blood Culture - Preliminary NO GROWTH AFTER 24 HOURS 01/08/18 16:32 Blood Blood Culture - Preliminary NO GROWTH AFTER 24 HOURS 01/06/18 19:27 Urine,Clean Catch Urine Culture - Final No Growth (<1,000 CFU/ML) Most Recent Lab Values WBC 5.0 K/uL (4.8-10.8) 01/10/18 08:29 RBC 4.27 Mil/uL (3.80-5.20) 01/10/18 08:29 Hgb 11.1 g/dL (11.0-16.0) 01/10/18 08:29 Hct 33.0 % (34.0-47.0) L 01/10/18 08:29 MCV 77.3 fL (81.0-99.0) L 01/10/18 08:29 MCH 26.1 pg (27.0-31.0) L 01/10/18 08:29 MCHC 33.8 g/dL (33.0-37.0) 01/10/18 08:29 RDW 11.9 % (11.5-14.5) 01/10/18 08:29 Plt Count 141 K/uL (130-400) 01/10/18 08:29 MPV 10.5 fL (7.2-11.7) 01/10/18 08:29 Neut % (Auto) 55.2 % (50.0-75.0) 01/10/18 08:29 Lymph % (Auto) 30.4 % (20.0-40.0) 01/10/18 08:29 Wilcox % (Auto) 11.0 % (0.0-10.0) H 01/10/18 08:29 Eos % (Auto) 2.7 % (0.0-4.0) 01/10/18 08:29 Baso % (Auto) 0.7 % (0.0-2.0) 01/10/18 08:29 Neut # (Auto) 2.8 K/uL (1.8-7.0) 01/10/18 08:29 Lymph # (Auto) 1.5 K/uL (1.0-4.3) 01/10/18 08:29 Wilcox # (Auto) 0.6 K/uL (0.0-0.8) 01/10/18 08:29 Eos # (Auto) 0.1 K/uL (0.0-0.7) 01/10/18 08:29 Baso # (Auto) 0.0 K/uL (0.0-0.2) 01/10/18 08:29 PT 12.2 SECONDS (9.7-12.2) 01/07/18 11:33 INR 1.1 01/07/18 11:33 APTT 28 SECONDS (21-34) 01/07/18 11:33 Sodium 138 mmol/L (132-148) 01/10/18 08:29 Potassium 3.8 mmol/L (3.6-5.2) 01/10/18 08:29 Chloride 102 mmol/L (98-107) 01/10/18 08:29 Carbon Dioxide 26 mmol/L (22-30) 01/10/18 08:29 Anion Gap 14 (10-20) 01/10/18 08:29 BUN 11 mg/dL (7-17) 01/10/18 08:29 Creatinine 0.8 mg/dL (0.7-1.2) 01/10/18 08:29 Est GFR ( Amer) > 60 01/10/18 08:29 Est GFR (Non-Af Amer) > 60 01/10/18 08:29 Random Glucose 55 mg/dL (65-105) L 01/10/18 08:29 Hemoglobin A1c 5.7 % (4.2-6.5) 01/09/18 12:33 Calcium 7.9 mg/dl (8.6-10.4) L 01/10/18 08:29 Phosphorus 3.0 mg/dL (2.5-4.5) 01/10/18 08:29 Magnesium 2.0 mg/dL (1.6-2.3) 01/10/18 08:29 Total Bilirubin 0.4 mg/dL (0.2-1.3) 01/10/18 08:29 AST 81 U/L (14-36) H D 01/10/18 08:29 ALT 229 U/L (9-52) H 01/10/18 08:29 Alkaline Phosphatase 32 U/L (38-126) L 01/10/18 08:29 Total Protein 5.4 g/dL (6.3-8.3) L 01/10/18 08:29 Albumin 3.0 g/dL (3.5-5.0) L 01/10/18 08:29 Globulin 2.3 gm/dL (2.2-3.9) 01/10/18 08:29 Albumin/Globulin Ratio 1.3 (1.0-2.1) 01/10/18 08:29 Lipase 146 U/L (23-300) 01/09/18 07:00 Free T4 1.84 ng/dL (0.78-2.19) 01/09/18 07:00 TSH 3rd Generation 1.28 mIU/L (0.46-4.68) 01/09/18 07:00 Beta HCG, Quant < 2.39 mIU/ML 01/09/18 07:00 Urine Color Yellow (YELLOW) 01/06/18 19: Urine Clarity Hazy (Clear) 01/06/18 19: Urine pH 7.0 (5.0-8.0) 01/06/18 19: Ur Specific Hodges 1.027 (1.003-1.030) 01/06/18 19: Urine Protein 1+ mg/dL (NEGATIVE) H 01/06/18 19: Urine Glucose (UA) Normal mg/dL (Normal) 01/06/18 19: Urine Ketones 2+ mg/dL (NEGATIVE) H 01/06/18 19: Urine Blood Negative (NEGATIVE) 01/06/18 19: Urine Nitrate Negative (NEGATIVE) 01/06/18 19: Urine Bilirubin Negative (NEGATIVE) 01/06/18 19: Urine Urobilinogen Normal mg/dL (0.2-1.0) 01/06/18 19: Ur Leukocyte Esterase Neg Vel/uL (Negative) 01/06/18 19: Urine WBC (Auto) 3 /hpf (0-5) 01/06/18 19: Urine RBC (Auto) 3 /hpf (0-3) 01/06/18 19: Ur Squamous Epith Cells 1 /hpf (0-5) 01/06/18 19:27 Amorphous Sediment Rare /ul (<OCC) H 01/06/18 19:27 Urine Bacteria Rare (<OCC) 01/06/18 19:27 Urine HCG, Qual Negative (NEGATIVE) 01/06/18 19:27 IgG 718.2 mg/dL (700.0-1600.0) 01/08/18 11:37 ANABELLA 6 Profile Negative (NEGATIVE) 01/07/18 20:18 Anti-Mitochondrial Ab Negative (Negative) 01/07/18 20:18 Smooth Muscle Ab Titer 1:40 Titer (< 1:20) H 01/08/18 11:37 Anti-Smooth Muscle Ab Positive (Negative) H 01/08/18 11:37 Hepatitis A IgM Ab Negative (NEGATIVE) 01/07/18 20:18 Hep Bs Antigen Negative (NEGATIVE) 01/07/18 20:18 Hep B Core IgM Ab Negative (NEGATIVE) 01/07/18 20:18 Hepatitis C Antibody Negative (NEGATIVE) 01/07/18 20:18 Blood Type O POSITIVE 01/07/18 11:33 Antibody Screen Negative 01/07/18 11:33 Discharge Exam - Head Exam Head Exam: ATRAUMATIC, NORMAL INSPECTION, NORMOCEPHALIC Discharge Plan - Follow Up Plan Condition: STABLE Disposition: HOME/ ROUTINE Instructions: Nausea and Vomiting, Adult (DC), Cholecystitis (DC) Additional Instructions: Patient is to be discharged home, per Dr. Rojas. Patient is to follow up with her primary care physician in one week to follow up elevated liver enzymes. If patient does not have a primary care physician, she is to follow up with the [facility] located in the [facility]. Please call and schedule an appointment. - Patient is to go the [facility] [place] [facility] located in the [facility] prior to going for appointment at clinic. Patient is to continue to take Vantin 400mg PO BID for the next 4 days. If patient experiences any new or worsening symptoms, please go directly to the nearest emergency facility. Take care and be well. Referrals: [facility] [Outside]
== END 2018-01-10 12:28 | disposition home or self-care (01) ==
LOC: C.ER 18:26 → C.9E 01-07 03:11 → C.3T 01-07 06:57
PROVIDERS: ADMIT Family Medicine; ATTEND Family Medicine
DX: K81.9 Cholecystitis, unspecified (principal); K52.9 Noninfective gastroenteritis and colitis, unspecified; E87.6 Hypokalemia; R00.1 Bradycardia, unspecified; F17.210 Nicotine dependence, cigarettes, uncomplicated; R55 Syncope and collapse; N94.6 Dysmenorrhea, unspecified; R73.03 Prediabetes; R74.0 Nonspecific elevation of levels of transaminase and lactic acid dehydrogenase [LDH]; R11.2 Nausea with vomiting, unspecified; R79.89 Other specified abnormal findings of blood chemistry
CPT/HCPCS: 36415; 71045; 74018; 74177; 76700; 78226; 80053; 80074; 81001; 82784; 83036; 83690; 83735; 84100; 84439; 84443; 84702; 84703; 85025; 85610; 85730; 86038; 86255; 86850; 86900; 87040; 87086; 93005; 93306; 96360; 96374; 99285; A9537; C9113; G0378; J0694; J0696; J1885; J2060; J2405; J2765; J3480; J7030; J7120